=== PATIENT | male | born 1950 | race Caucasian/White ===

== ENCOUNTER 2018-08-26 08:12 | Emergency (ER) | payer MEDICAID ==
[2018-08-26] MEDS ORDERED: Sodium Chloride 0.9% 1,000 ML IV ONE (08:39)
[2018-08-26] MEDS ORDERED: MVI, Adult with Vitamin K 10 ML, Thiamine 100 MG, Folic Acid 1 MG in Sodium Chloride 0.... IV ONE ×4 (08:43)
[2018-08-26] MEDS ORDERED: LORazepam 2 MG/ML SDV IVPUSH ONE ×2 (08:44→10:10)
[2018-08-26] MEDS ORDERED: Ondansetron 4 MG/2 ML SDV IVPUSH ONE (08:45)
[2018-08-26] MEDS ORDERED: Albuterol/Ipratropium 3.0-0.5 MG/3 ML Neb Soln NEB ONE (08:46)
--- NOTE | 2018-08-26 08:53 | EDM.PDOC ---
<Daveywendy Kirk Louise - Last Filed: 08/26/18 12:02> ED HPI GENERAL MEDICAL PROBLEM - General Chief Complaint: Gastrointestinal Problem Stated Complaint: SOB Time Seen by Provider: 08/26/18 12:04 - History of Present Illness INITIAL COMMENTS - FREE TEXT/NARRATIVE: 68 y/o male with history of alcohol abuse who states he has been having nausea and vomiting past 2-3 days. States he drinks 2-3 beers per day. Has not been drink in the past few days due to nausea, vomiting. No hemoptysis, no fevers. No abdominal pain,dysuria. Does endorse some diarrhea in past few days. No sick contacts. Lives alone. Denies history of alcohol withdrawal seizures. - Related Data Allergies Allergy/AdvReac Type Severity Reaction Status Date / Time No Known Allergies Allergy Verified 08/26/18 08:20 Home Meds: Home Meds . [No Known Home Meds] 08/26/18 [History] Past Medical History HEENT History: Reports: None Cardiovascular History: Reports: Hypertension Respiratory History: Reports: None Gastrointestinal History: Reports: None Genitourinary History: Reports: None Musculoskeletal History: Reports: None Neurological History: Reports: None Psychiatric History: Reports: None Endocrine/Metabolic History: Reports: None Hematologic History: Reports: None Immunologic History: Reports: None Oncologic (Cancer) History: Reports: None Dermatologic History: Reports: None - Infectious Disease History Infectious Disease History: Reports: Chicken Pox - Past Surgical History Head Surgeries/Procedures: Reports: None HEENT Surgical History: Reports: None Cardiovascular Surgical History: Reports: None Respiratory Surgical History: Reports: None GI Surgical History: Reports: None Male Surgical History: Reports: None Endocrine Surgical History: Reports: None Neurological Surgical History: Reports: None Musculoskeletal Surgical History: Reports: None Oncologic Surgical History: Reports: None Dermatological Surgical History: Reports: None Social & Family History - Family History Family Medical History: Noncontributory - Tobacco Use Smoking Status *Q: Current Every Day Smoker Years of Tobacco use: 30 Packs/Tins Daily: 0.5 - Caffeine Use Caffeine Use: Reports: Coffee - Alcohol Use Days Per Week of Alcohol Use: 7 Number of Drinks Per Day: 4 Total Drinks Per Week: 28 - Recreational Drug Use Recreational Drug Use: No ED ROS GENERAL - Review of Systems Review Of Systems: ROS reveals no pertinent complaints other than HPI. ED EXAM, GI/ABD - Physical Exam Exam: See Below General Appearance: Alert, Anxious Throat/Mouth: Other (dry mucous membranes) Respiratory/Chest: Other (mild expiratory wheezing in upper lobes bilaterally) Cardiovascular: Normal Peripheral Pulses, No Edema, Tachycardia GI/Abdominal Exam: Other (distended, tympanic. non tender all through out.) Extremities: Normal Inspection, No Pedal Edema Neurological: Alert, Oriented Skin Exam: Warm, Dry Course - Vital Signs Text/Narrative:: Patient received IV fluids and Ativan 1mg IV x2. CT abdomen/pelvis did not show any acute findings. Showed some calcifications in the pancreas thought to be sequale of previous pancreatitis. Patient was offered admission for alcohol detox, however, he refused since he stated he was not ready to quit drinking alcohol. Last Recorded V/S: Last Vital Signs Temp 35.7 C 08/26/18 08:20 Pulse 113 H 08/26/18 08:20 Resp 18 08/26/18 08:20 BP 213/128 H 08/26/18 08:20 Pulse Ox 95 08/26/18 08:20 - Orders/Labs/Meds Orders: Active Orders 24 hr Category Date Time Status EKG 12 Lead [EKG Documentation Completion] [RC] STAT Care 08/26/18 08:56 Active RT Aerosol Therapy [RC] ASDIRECTED Care 08/26/18 08:46 Active MVI, Adult with Vitamin K [Infuvite Adult] 10 ml Med 08/26/18 08:43 Active Thiamine [Vitamin B-1] 100 mg Folic Acid 1 mg Sodium Chloride 0.9% [Normal Saline] 1,000 ml IV ONETIME Medication Orders Multivitamins/Minerals 10 ml/Thiamine HCl 100 mg/ Folic Acid 1 mg/ Sodium Chloride 1,011.2 mls @ 150 mls/hr IV ONETIME ONE Stop: 08/26/18 15:27 Last Admin: 08/26/18 10:09 Dose: 150 mls/hr Labs: Laboratory Tests 08/26/18 08/26/18 Range/Units 08:25 08:25 WBC 10.31 (4.0-11.0) K/uL RBC 5.65 (4.50-5.90) M/uL Hgb 18.1 H (13.0-17.0) g/dL Hct 50.1 H (38.0-50.0) % MCV 88.7 (80.0-98.0) fL MCH 32.0 (27.0-32.0) pg MCHC 36.1 (31.0-37.0) g/dL RDW Std Deviation 43.5 (28.0-62.0) fl RDW Coeff of Bria 13 (11.0-15.0) % Plt Count 255 (150-400) K/uL MPV 9.00 (7.40-12.00) fL Neut % (Auto) 81.8 H (48.0-80.0) % Lymph % (Auto) 14.1 L (16.0-40.0) % Butts % (Auto) 3.9 (0.0-15.0) % Eos % (Auto) 0.1 (0.0-7.0) % Baso % (Auto) 0.1 (0.0-1.5) % Neut # (Auto) 8.4 H (1.4-5.7) K/uL Lymph # (Auto) 1.5 (0.6-2.4) K/uL Butts # (Auto) 0.4 (0.0-0.8) K/uL Eos # (Auto) 0.0 (0.0-0.7) K/uL Baso # (Auto) 0.0 (0.0-0.1) K/uL Nucleated RBC % 0.0 /100WBC Nucleated RBCs # 0 K/uL Sodium 130 L (136-148) mmol/L Potassium 3.7 (3.5-5.1) mmol/L Chloride 94 L (98-107) mmol/L Carbon Dioxide 21.5 (21.0-32.0) mmol/L BUN 5 L (7.0-18.0) mg/dL Creatinine 0.8 (0.8-1.3) mg/dL Est Cr Clr Drug Dosing 92.52 mL/min Estimated GFR (MDRD) > 60.0 ml/min Glucose 141 H (74-106) mg/dL Calcium 9.5 (8.5-10.1) mg/dL Magnesium 1.9 (1.8-2.4) mg/dL Total Bilirubin 0.7 (0.2-1.0) mg/dL AST 55 H (15-37) IU/L ALT 60 (14-63) IU/L Alkaline Phosphatase 88 (46-116) U/L Total Protein 8.4 H (6.4-8.2) g/dL Albumin 4.3 (3.4-5.0) g/dL Globulin 4.1 H (2.6-4.0) g/dL Albumin/Globulin Ratio 1.1 (0.9-1.6) Lipase 256 (73-393) U/L Ethyl Alcohol < 3.0 mg/dL Meds: Medications Generic Name Dose Route Start Last Admin Trade Name Freq PRN Reason Stop Dose Admin Multivitamins/Minerals 10 ml/ 1,011.2 mls @ 150 mls/hr 08/26/18 08:43 10:09 Thiamine HCl 100 mg/ Folic IV 08/26/18 15:27 150 mls/hr Acid 1 mg/ Sodium Chloride ONETIME ONE Administration Discontinued Medications Generic Name Dose Route Start Last Admin Trade Name Freq PRN Reason Stop Dose Admin Albuterol/Ipratropium 3 ml 08/26/18 08:46 08/26/18 08:53 Duoneb 3.0-0.5 Mg/3 Ml NEB 08/26/18 08:47 3 ml ONETIME ONE Administration Sodium Chloride 1,000 mls @ 999 mls/hr 08/26/18 08:39 08/26/18 08:47 Normal Saline IV 08/26/18 09:39 999 mls/hr STAT ONE Administration Sodium Chloride Confirm 08/26/18 09:05 Normal Saline Administered 08/26/18 09:06 Dose 20 mls @ as directed .ROUTE .STK-MED ONE Iopamidol 100 ml 08/26/18 09:49 08/26/18 10:00 Isovue Multipack-370 (76%) IVPUSH 08/26/18 09:50 100 ml ONETIME STA Administration Lorazepam 1 mg 08/26/18 08:44 08/26/18 08:51 Ativan IVPUSH 08/26/18 08:45 1 mg ONETIME ONE Administration Lorazepam 1 mg 08/26/18 10:10 08/26/18 10:54 Ativan IVPUSH 08/26/18 10:11 1 mg ONETIME ONE Administration Ondansetron HCl 4 mg 08/26/18 08:45 08/26/18 08:51 Zofran IVPUSH 08/26/18 08:46 4 mg ONETIME ONE Administration Pantoprazole Sodium 80 mg 08/26/18 08:57 08/26/18 10:09 Protonix Iv IVPUSH 08/26/18 08:58 80 mg .BOLUS ONE Administration Departure - Departure Time of Disposition: 12:02 Disposition: Home, Self-Care 01 Condition: Fair Clinical Impression: Dehydration, Alcohol withdrawal - Discharge Information *PRESCRIPTION DRUG MONITORING PROGRAM REVIEWED*: No *COPY OF PRESCRIPTION DRUG MONITORING REPORT IN PATIENT DOMINGO: No Instructions: Alcohol Use Disorder, Dehydration, Adult, [id number] Referrals: PCP,None [Primary Care Provider] - Forms: ED Department Discharge Additional Instructions: Please abstain from alcohol and any mind altering substances. Follow-up with your PCP. <Ce Martinez - Last Filed: 08/26/18 12:10> ED HPI GENERAL MEDICAL PROBLEM - History of Present Illness INITIAL COMMENTS - FREE TEXT/NARRATIVE: Dr. Martinez dictating an addendum note as in the supervising physician on this case. The patient tells me that he did not have any abdominal pain just the nausea and vomiting and as a result of that he was unable to drink his daily beer and this is why he is feeling shaky. When I directly ask him if he had planned on stopping drinking alcohol he denies this. He says he currently does not have any abdominal pain and has no fevers chills chest pain or shortness of breath. The patient has no history of liver or gallbladder or pancreas problems and no history of peptic ulcer disease. He currently is tachycardic on arrival and looks somewhat tremulous but is awake alert and oriented and cooperative. He has no specific abdominal tenderness but does have some tympany on percussion and bowel sounds are slightly hypoactive. We will continue with workup as above and disposition pending those test results The patient's tachycardia has significantly improved to 100 and he has much less tremulous. Please see the resident note for conversations with this patient. When queried if the patient would like to do detox here and then subsequent rehabilitation he says that he has no intention of not drinking alcohol. He says that as long as his nausea and vomiting are controlled he would like to be discharged home as he plans on continuing his alcohol consumption. He was cautioned about the sequela of alcohol use and abuse and he states understanding. He has not had any nausea or vomiting here in the ED. Course - Orders/Labs/Meds Labs: Laboratory Tests 08/26/18 08/26/18 Range/Units 08:25 08:25 WBC 10.31 (4.0-11.0) K/uL RBC 5.65 (4.50-5.90) M/uL Hgb 18.1 H (13.0-17.0) g/dL Hct 50.1 H (38.0-50.0) % MCV 88.7 (80.0-98.0) fL MCH 32.0 (27.0-32.0) pg MCHC 36.1 (31.0-37.0) g/dL RDW Std Deviation 43.5 (28.0-62.0) fl RDW Coeff of Bria 13 (11.0-15.0) % Plt Count 255 (150-400) K/uL MPV 9.00 (7.40-12.00) fL Neut % (Auto) 81.8 H (48.0-80.0) % Lymph % (Auto) 14.1 L (16.0-40.0) % Butts % (Auto) 3.9 (0.0-15.0) % Eos % (Auto) 0.1 (0.0-7.0) % Baso % (Auto) 0.1 (0.0-1.5) % Neut # (Auto) 8.4 H (1.4-5.7) K/uL Lymph # (Auto) 1.5 (0.6-2.4) K/uL Butts # (Auto) 0.4 (0.0-0.8) K/uL Eos # (Auto) 0.0 (0.0-0.7) K/uL Baso # (Auto) 0.0 (0.0-0.1) K/uL Nucleated RBC % 0.0 /100WBC Nucleated RBCs # 0 K/uL Sodium 130 L (136-148) mmol/L Potassium 3.7 (3.5-5.1) mmol/L Chloride 94 L (98-107) mmol/L Carbon Dioxide 21.5 (21.0-32.0) mmol/L BUN 5 L (7.0-18.0) mg/dL Creatinine 0.8 (0.8-1.3) mg/dL Est Cr Clr Drug Dosing 92.52 mL/min Estimated GFR (MDRD) > 60.0 ml/min Glucose 141 H (74-106) mg/dL Calcium 9.5 (8.5-10.1) mg/dL Magnesium 1.9 (1.8-2.4) mg/dL Total Bilirubin 0.7 (0.2-1.0) mg/dL AST 55 H (15-37) IU/L ALT 60 (14-63) IU/L Alkaline Phosphatase 88 (46-116) U/L Total Protein 8.4 H (6.4-8.2) g/dL Albumin 4.3 (3.4-5.0) g/dL Globulin 4.1 H (2.6-4.0) g/dL Albumin/Globulin Ratio 1.1 (0.9-1.6) Lipase 256 (73-393) U/L Ethyl Alcohol < 3.0 mg/dL
[2018-08-26] MEDS ORDERED: Pantoprazole 40 MG Vial IVPUSH ONE (08:57)
[2018-08-26 09:04] LABS: CHLORIDE,CL 94 mmol/L (98-107); SODIUM,NA 130 mmol/L (136-148)
[2018-08-26] MEDS ORDERED: Sodium Chloride 0.9% 20 ML ONE (09:05)
[2018-08-26] MEDS ORDERED: Iopamidol 755 MG/ML 500 ML Multipack Bottle IVPUSH STA (09:49)
--- NOTE | 2018-08-26 10:29 | CT ---
CT of the abdomen and pelvis with contrast. HISTORY: Nausea and vomiting TECHNIQUE: Axial CT images were obtained of the abdomen and pelvis following administration of 100 mL of Isovue-370 in the left antecubital fossa without complication. Coronal and sagittal reconstructions obtained. FINDINGS: Motion is noted within the lung bases which otherwise appear grossly unremarkable. Severe fatty infiltration of the liver. The gallbladder is normal. The adrenal glands are unremarkable. Spleen is diminutive in size. A few Pancreatic calcifications are noted. The kidneys enhance and function symmetrically without evidence of obstructive uropathy. The large and small bowel are normal in caliber. Moderate colonic diverticulosis without evidence of diverticulitis. The appendix is normal. No pelvic lymphadenopathy or free pelvic fluid. Urinary bladder dong appear mildly thickened. No suspicious osseous abnormalities identified. IMPRESSION: 1. No evidence of a small bowel obstruction. 2. An infiltration of the liver. 3. A few pancreatic calcifications noted, likely the sequela of previous pancreatitis. 4. Moderate diverticulosis. 5. Bladder dong appear mildly thickened however the bladder is not overly distended.
== END 2018-08-26 12:20 | disposition home or self-care (01) ==
LOC: MW.ED 08:12
DX: F10.239 Alcohol dependence with withdrawal, unspecified (principal); Y90.0 Blood alcohol level of less than 20 mg/100 ml; E86.0 Dehydration; I10 Essential (primary) hypertension; F17.210 Nicotine dependence, cigarettes, uncomplicated
CPT/HCPCS: 36415; 74177; 80053; 83690; 83735; 85025; 93005; 94640; 96361; 96365; 96366; 96375; 96376; 99284; C9113; G0480; J2060; J2405; J3411; J7040; Q9967; J7620-GY

== ENCOUNTER 2018-09-11 07:03 | Emergency (ER) | payer MEDICAID ==
[2018-09-11] MEDS ORDERED: Ondansetron 4 MG/2 ML SDV IVPUSH ONE (07:08)
[2018-09-11] MEDS ORDERED: Sodium Chloride 0.9% 1,000 ML IV ONE (07:08)
[2018-09-11] MEDS ORDERED: LORazepam 2 MG/ML SDV IVPUSH ONE (07:09)
[2018-09-11] MEDS ORDERED: Pantoprazole 40 MG Vial IVPUSH ONE (07:24)
[2018-09-11] MEDS ORDERED: Sodium Chloride 0.9% 10 ML SDV IV STA (07:29)
[2018-09-11] MEDS ORDERED: Water For Injection, Sterile 20 ML SDV INJECT STA (07:30)
[2018-09-11 07:48] LABS: CHLORIDE,CL 93 mmol/L (98-107); SODIUM,NA 131 mmol/L (136-148)
--- NOTE | 2018-09-11 08:17 | EDM.PDOC ---
ED HPI GENERAL MEDICAL PROBLEM - General Chief Complaint: General Stated Complaint: VOMITING, DIARRHEA, WEAK, SHAKING, ANXIETY Time Seen by Provider: 09/11/18 08:17 Source of Information: Reports: Patient - History of Present Illness INITIAL COMMENTS - FREE TEXT/NARRATIVE: HISTORY AND PHYSICAL: History of present illness: [Patient presents with nausea vomiting and anxiety, states that he has been drinking 2-4 beers daily but began vomiting last night, stating that he gets quite anxious and then vomits he has had 2-3 episodes of vomiting twice last night and again this morning and presents as such is in no distress alert interactive easily examined No fever chills sweats no chest pain shortness breath headache dizziness palpitation no bowel or urine symptoms ] Review of systems: As per history of present illness and below otherwise all systems reviewed and negative. Past medical history: As per history of present illness and as reviewed below otherwise noncontributory. Surgical history: As per history of present illness and as reviewed below otherwise noncontributory. Social history: No reported history of drug or alcohol abuse. Family history: As per history of present illness and as reviewed below otherwise noncontributory. Physical exam: HEENT: Atraumatic, normocephalic, pupils reactive, negative for conjunctival pallor or scleral icterus, mucous membranes moist, throat clear, neck supple, nontender, trachea midline. Lungs: Clear to auscultation, breath sounds equal bilaterally, chest nontender. Heart: S1S2, regular, negative for clicks, rubs, or JVD. Abdomen: Soft, nondistended, nontender. Negative for masses or hepatosplenomegaly. Negative for costovertebral tenderness. Pelvis: Stable nontender. Genitourinary: Deferred. Rectal: Deferred. Extremities: Atraumatic, negative for cords or calf pain. Neurovascular unremarkable. Neuro: Awake, alert, oriented. Cranial nerves II through XII unremarkable. Cerebellum unremarkable. Motor and sensory unremarkable throughout. Exam nonfocal. Diagnostics: [CBC CMP UA troponin EKG Chest 1 view Abdomen series] Therapeutics: [ bolus Zofran Ativan Zofran No. 30 Ativan 0.5 twice a day #10 no refill ] Impression: [ vomiting Anxiety Alcohol use abuse ] Chronic history of baseline Definitive disposition and diagnosis as appropriate pending reevaluation and review of above. - Related Data Allergies Allergy/AdvReac Type Severity Reaction Status Date / Time No Known Allergies Allergy Verified 09/11/18 07:13 Home Meds: Home Meds . [No Known Home Meds] 08/26/18 [History] Past Medical History HEENT History: Reports: None Cardiovascular History: Reports: Hypertension Respiratory History: Reports: None Gastrointestinal History: Reports: None Genitourinary History: Reports: None Musculoskeletal History: Reports: None Neurological History: Reports: None Psychiatric History: Reports: None Endocrine/Metabolic History: Reports: None Hematologic History: Reports: None Immunologic History: Reports: None Oncologic (Cancer) History: Reports: None Dermatologic History: Reports: None - Infectious Disease History Infectious Disease History: Reports: Chicken Pox - Past Surgical History Head Surgeries/Procedures: Reports: None HEENT Surgical History: Reports: None Cardiovascular Surgical History: Reports: None Respiratory Surgical History: Reports: None GI Surgical History: Reports: None Male Surgical History: Reports: None Endocrine Surgical History: Reports: None Neurological Surgical History: Reports: None Musculoskeletal Surgical History: Reports: None Oncologic Surgical History: Reports: None Dermatological Surgical History: Reports: None Social & Family History - Family History Family Medical History: Noncontributory - Tobacco Use Smoking Status *Q: Current Every Day Smoker Years of Tobacco use: 25 Packs/Tins Daily: 0.5 - Caffeine Use Caffeine Use: Reports: None - Recreational Drug Use Recreational Drug Use: No ED ROS GENERAL - Review of Systems Review Of Systems: See Below ED EXAM, GENERAL - Physical Exam Exam: See Below Course - Vital Signs Last Recorded V/S: Last Vital Signs Temp 98.0 F 09/11/18 07:15 Pulse 78 09/11/18 08:10 Resp 14 09/11/18 08:10 BP 186/102 H 09/11/18 08:10 Pulse Ox 93 L 09/11/18 08:10 - Orders/Labs/Meds Orders: Active Orders 24 hr Category Date Time Status EKG Documentation Completion [RC] AM Care 09/11/18 07:08 Active CULTURE URINE [RM] Stat Lab 09/11/18 08:14 Received Labs: Laboratory Tests 09/11/18 09/11/18 09/11/18 Range/Units 07:09 07:09 07:09 WBC 7.89 (4.0-11.0) K/uL RBC 5.54 (4.50-5.90) M/uL Hgb 18.2 H (13.0-17.0) g/dL Hct 49.3 (38.0-50.0) % MCV 89.0 (80.0-98.0) fL MCH 32.9 H (27.0-32.0) pg MCHC 36.9 (31.0-37.0) g/dL RDW Std Deviation 43.8 (28.0-62.0) fl RDW Coeff of Bria 13 (11.0-15.0) % Plt Count 276 (150-400) K/uL MPV 8.90 (7.40-12.00) fL Neut % (Auto) 70.7 (48.0-80.0) % Lymph % (Auto) 22.1 (16.0-40.0) % [place] % (Auto) 6.8 (0.0-15.0) % Eos % (Auto) 0.1 (0.0-7.0) % Baso % (Auto) 0.3 (0.0-1.5) % Neut # (Auto) 5.6 (1.4-5.7) K/uL Lymph # (Auto) 1.7 (0.6-2.4) K/uL [place] # (Auto) 0.5 (0.0-0.8) K/uL Eos # (Auto) 0.0 (0.0-0.7) K/uL Baso # (Auto) 0.0 (0.0-0.1) K/uL Nucleated RBC % 0.0 /100WBC Nucleated RBCs # 0 K/uL INR 1.04 Sodium 131 L (136-148) mmol/L Potassium 4.0 (3.5-5.1) mmol/L Chloride 93 L (98-107) mmol/L Carbon Dioxide 21.5 (21.0-32.0) mmol/L BUN 4 L (7.0-18.0) mg/dL Creatinine 0.8 (0.8-1.3) mg/dL Est Cr Clr Drug Dosing 90.83 mL/min Estimated GFR (MDRD) > 60.0 ml/min Glucose 132 H (74-106) mg/dL Calcium 9.5 (8.5-10.1) mg/dL Total Bilirubin 0.9 (0.2-1.0) mg/dL AST 50 H (15-37) IU/L ALT 58 (14-63) IU/L Alkaline Phosphatase 91 (46-116) U/L Troponin I < 0.050 (0.000-0.056) ng/mL Total Protein 8.8 H (6.4-8.2) g/dL Albumin 4.5 (3.4-5.0) g/dL Globulin 4.3 H (2.6-4.0) g/dL Albumin/Globulin Ratio 1.1 (0.9-1.6) Urine Color Urine Appearance Urine pH (5.0-8.0) Ur Specific [place] (1.001-1.035) Urine Protein (NEGATIVE) mg/dL Urine Glucose (UA) (NEGATIVE) mg/dL Urine Ketones (NEGATIVE) mg/dL Urine Occult Blood (NEGATIVE) Urine Nitrite (NEGATIVE) Urine Bilirubin (NEGATIVE) Urine Urobilinogen (<2.0) EU/dL Ur Leukocyte Esterase (NEGATIVE) Urine RBC (0-2/HPF) Urine WBC (0-5/HPF) Ur Epithelial Cells (NONE-FEW) Urine Bacteria (NEGATIVE) 09/11/18 Range/Units 08:14 WBC (4.0-11.0) K/uL RBC (4.50-5.90) M/uL Hgb (13.0-17.0) g/dL Hct (38.0-50.0) % MCV (80.0-98.0) fL MCH (27.0-32.0) pg MCHC (31.0-37.0) g/dL RDW Std Deviation (28.0-62.0) fl RDW Coeff of Bria (11.0-15.0) % Plt Count (150-400) K/uL MPV (7.40-12.00) fL Neut % (Auto) (48.0-80.0) % Lymph % (Auto) (16.0-40.0) % [place] % (Auto) (0.0-15.0) % Eos % (Auto) (0.0-7.0) % Baso % (Auto) (0.0-1.5) % Neut # (Auto) (1.4-5.7) K/uL Lymph # (Auto) (0.6-2.4) K/uL [place] # (Auto) (0.0-0.8) K/uL Eos # (Auto) (0.0-0.7) K/uL Baso # (Auto) (0.0-0.1) K/uL Nucleated RBC % /100WBC Nucleated RBCs # K/uL INR Sodium (136-148) mmol/L Potassium (3.5-5.1) mmol/L Chloride (98-107) mmol/L Carbon Dioxide (21.0-32.0) mmol/L BUN (7.0-18.0) mg/dL Creatinine (0.8-1.3) mg/dL Est Cr Clr Drug Dosing mL/min Estimated GFR (MDRD) ml/min Glucose (74-106) mg/dL Calcium (8.5-10.1) mg/dL Total Bilirubin (0.2-1.0) mg/dL AST (15-37) IU/L ALT (14-63) IU/L Alkaline Phosphatase (46-116) U/L Troponin I (0.000-0.056) ng/mL Total Protein (6.4-8.2) g/dL Albumin (3.4-5.0) g/dL Globulin (2.6-4.0) g/dL Albumin/Globulin Ratio (0.9-1.6) Urine Color YELLOW Urine Appearance CLEAR Urine pH 7.0 (5.0-8.0) Ur Specific [place] <= 1.005 (1.001-1.035) Urine Protein NEGATIVE (NEGATIVE) mg/dL Urine Glucose (UA) 100 H (NEGATIVE) mg/dL Urine Ketones NEGATIVE (NEGATIVE) mg/dL Urine Occult Blood TRACE-LYSED H (NEGATIVE) Urine Nitrite NEGATIVE (NEGATIVE) Urine Bilirubin NEGATIVE (NEGATIVE) Urine Urobilinogen 0.2 (<2.0) EU/dL Ur Leukocyte Esterase TRACE H (NEGATIVE) Urine RBC 0-1 (0-2/HPF) Urine WBC 0-1 (0-5/HPF) Ur Epithelial Cells FEW (NONE-FEW) Urine Bacteria FEW (NEGATIVE) Meds: Medications Discontinued Medications Generic Name Dose Route Start Last Admin Trade Name Freq PRN Reason Stop Dose Admin Enalaprilat 1.25 mg 09/11/18 09:08 Vasotec Iv IVPUSH 09/11/18 09:09 ONETIME ONE Sodium Chloride 1,000 mls @ 999 mls/hr 09/11/18 07:08 09/11/18 07:17 Normal Saline IV 09/11/18 08:08 999 mls/hr STAT ONE Administration Lorazepam 1 mg 09/11/18 07:09 09/11/18 07:18 Ativan IVPUSH 09/11/18 07:10 1 mg ONETIME ONE Administration Ondansetron HCl 8 mg 09/11/18 07:08 09/11/18 07:18 Zofran IVPUSH 09/11/18 07:09 8 mg ONETIME ONE Administration Pantoprazole Sodium 80 mg 09/11/18 07:24 09/11/18 07:36 Protonix Iv IVPUSH 09/11/18 07:25 80 mg .BOLUS ONE Administration Sodium Chloride 20 ml 09/11/18 07:29 09/11/18 07:37 Normal Saline IV 09/11/18 07:30 Not Given NOW STA Sterile Water 20 ml 09/11/18 07:30 09/11/18 07:36 Sterile Water For Injection INJECT 09/11/18 07:31 20 ml NOW STA Administration Departure - Departure Time of Disposition: 09:13 Disposition: Home, Self-Care 01 Condition: Good Clinical Impression: Vomiting, Anxiety - Discharge Information Referrals: PCP,None [Primary Care Provider] - Forms: ED Department Discharge Additional Instructions: Medication as prescribed Return if symptoms persist or worsen Alcohol cessation recommended Follow-up with primary care 2 weeks sooner as needed [facility] - Primary [facility] [address] [place] [address] The following information is given to patients seen in the emergency department who are being discharged to home. This information is to outline your options for follow-up care. We provide all patients seen in our emergency department with a follow-up referral. The need for follow-up, as well as the timing and circumstances, are variable depending upon the specifics of your emergency department visit. If you don't have a primary care physician on staff, we will provide you with a referral. We always advise you to contact your personal physician following an emergency department visit to inform them of the circumstance of the visit and for follow-up with them and/or the need for any referrals to a consulting specialist. The emergency department will also refer you to a specialist when appropriate. This referral assures that you have the opportunity for follow-up care with a specialist. All of these measure are taken in an effort to provide you with optimal care, which includes your follow-up. Under all circumstances we always encourage you to contact your private physician who remains a resource for coordinating your care. When calling for follow-up care, please make the office aware that this follow-up is from your recent emergency room visit. If for any reason you are refused follow-up, please contact the [facility] emergency department at and asked to speak to the emergency department charge nurse. - My Orders Last 24 Hours: My Active Orders 09/11/18 07:08 EKG Documentation Completion [RC] AM 09/11/18 08:14 CULTURE URINE [RM] Stat - Assessment/Plan Last 24 Hours: My Active Orders 09/11/18 07:08 EKG Documentation Completion [RC] AM 09/11/18 08:14 CULTURE URINE [RM] Stat
--- NOTE | 2018-09-11 08:55 | CR ---
EXAMINATION: Abdominal series HISTORY: Pain COMPARISON: CT dated 08/26/2018 TECHNIQUE: PA chest and AP views of the abdomen FINDINGS: The lungs are clear without focal consolidation. No pleural effusion or pneumothorax. The cardiomediastinal silhouette is normal. No free air under the diaphragm. There is a nonobstructive bowel gas pattern. No abnormal calcifications project over the kidneys. No organomegaly. Visualized osseous structures appear intact. IMPRESSION: No acute cardiopulmonary or abdominal findings noted.
[2018-09-11] MEDS ORDERED: Enalaprilat 1.25 MG/ML SDV IVPUSH ONE (09:08)
== END 2018-09-11 09:24 | disposition home or self-care (01) ==
LOC: MW.ED 07:03
DX: F41.9 Anxiety disorder, unspecified (principal); F10.10 Alcohol abuse, uncomplicated; R11.2 Nausea with vomiting, unspecified; I10 Essential (primary) hypertension; F17.210 Nicotine dependence, cigarettes, uncomplicated
CPT/HCPCS: 36415; 74022; 80053; 81001; 84484; 85025; 85610; 87086; 87088; 87186; 93005; 96361; 96374; 96375; 99284; C9113; J2060; J2405; J7040

== ENCOUNTER 2019-07-01 09:59 | Inpatient (IN) | payer MEDICARE, OTHER ==
[2019-07-01] MEDS ORDERED: Diphtheria,Pertussis(Acell),Tetanus Vaccine 0.5 ML Syringe IM ONE (10:24)
--- NOTE | 2019-07-01 10:38 | CR ---
Chest: Frontal view of the chest was obtained utilizing portable technique. Comparison: No prior chest imaging. Heart size is normal. Tortuous thoracic aorta is seen. Lungs are clear with no acute parenchymal change. No gross bony abnormality is appreciated. Impression: 1. Nothing acute is appreciated on portable chest x-ray. Diagnostic code #1 This report was dictated in MDT
--- NOTE | 2019-07-01 10:45 | CT ---
Head CT Technique: Multiple axial sections through the brain were obtained. Intravenous contrast was not utilized. Comparison: No prior intracranial imaging is available. Findings: Ventricles along with basal cisterns and sulci over the convexities are mildly prominent. No abnormal parenchymal densities are seen. No evidence of intracranial hemorrhage. No midline shift or mass-effect is seen. Bone window settings were reviewed. No acute calvarial finding is appreciated. Visualized mastoid sinus shows minimal mucosal thickening or fluid inferiorly on the left side. Other mastoid sinuses are clear. Mucosal thickening and questionable fluid is noted within the maxillary sinuses and difficult to exclude sinusitis. No acute calvarial abnormality is appreciated. Impression: 1. Sinus findings within both maxillary sinuses. Difficult to exclude pre-existing sinusitis. 2. Minimal mucosal thickening or fluid within the inferior left mastoid sinus. 3. No acute intracranial abnormality is appreciated. Diagnostic code #2 This report was dictated in MDT
--- NOTE | 2019-07-01 10:45 | CT ---
CT cervical spine Technique: Multiple axial sections through the cervical spine were obtained from above C1 inferiorly to the bottom of T2. Reconstructed coronal and sagittal images were obtained. Comparison: No prior cervical spine imaging is available. Findings: Moderate disc space narrowing noted at C5-6. Mild disc space narrowing noted at C6-7. Mild disc space narrowing is noted at C4-5. Vertebral body heights are maintained. Posterior osteophytes are seen most prominent C5-6. Vertebral bodies and posterior arches are intact. No fracture is appreciated. Moderate to severe left-sided neural foraminal stenosis is noted at C5-6 with mild right-sided neural foraminal stenosis noted at C5-6. Other neural foramina are patent. No bony central canal stenosis is seen. Impression: 1. Degenerative change as noted above. 2. Nothing acute is appreciated on CT study of the cervical spine. Diagnostic code #2 This report was dictated in MDT
[2019-07-01 10:47] LABS: BLOOD UREA NITROGEN,BUN 8 mg/dL (7.0-18.0); CARBON DIOXIDE,CO2 24.1 mmol/L (21.0-32.0); CHLORIDE,CL 65 mmol/L (98-107); GLUCOSE RANDOM 139 mg/dL (74-106); POTASSIUM,K 3.7 mmol/L (3.5-5.1)
[2019-07-01 10:53] LABS: SODIUM,NA 99 mmol/L (136-148)
--- NOTE | 2019-07-01 10:54 | CR ---
Right knee: AP, lateral and sunrise patellar views of the right knee were obtained. Comparison: No prior knee exam. Moderate to severe medial joint space narrowing within the right knee. Lateral joint space is preserved. Minimal fluid within the joint is seen. Mild vascular calcification is noted. No acute fracture or dislocation is seen. Impression: 1. Degenerative change. 2. Nothing acute is appreciated on 3 view right knee exam. Diagnostic code #2 This report was dictated in MDT
[2019-07-01 11:40] LABS: BLOOD UREA NITROGEN,BUN 9 mg/dL (7.0-18.0); CARBON DIOXIDE,CO2 23.5 mmol/L (21.0-32.0); CHLORIDE,CL 65 mmol/L (98-107); GLUCOSE RANDOM 132 mg/dL (74-106); POTASSIUM,K 3.3 mmol/L (3.5-5.1)
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
[2019-07-01 11:43] LABS: SODIUM,NA 100 mmol/L (136-148)
[2019-07-01] MEDS ORDERED: Sodium Chloride 3% 500 ML IV SCH (11:45)
[2019-07-01] MEDS ORDERED: cefTRIAXone 1 GM in Sodium Chloride 0.9% 50 ML IV ONE (12:16)
[2019-07-01] MEDS ORDERED: LORazepam 2 MG/ML SDV IV PRN (13:26)
[2019-07-01] MEDS ORDERED: Sodium Chloride 0.9% 2.5 ML Syringe FLUSH PRN (13:26)
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
--- NOTE | 2019-07-01 15:07 | CT ---
CT chest Technique: Multiple axial sections were obtained from above the lung apices inferiorly through the lung bases. Reconstructed coronal and sagittal images were obtained. Intravenous contrast was not utilized. Findings: Thoracic aorta shows atherosclerotic calcification. No aneurysm is seen. Mild coronary artery calcification is noted. No pericardial thickening is noted. Mediastinum and hilar region show no adenopathy or mass. Lungs show emphysematous change with small subpleural blebs. No acute parenchymal change is seen. No pleural effusions are noted. No pneumothorax is appreciated. No acute osseous finding is appreciated. Reconstructed images of the sternum appear within normal limits. Impression: 1. Diffuse emphysematous change with small subpleural blebs. 2. Other findings as noted above which are nonacute. 3. No acute finding is seen on CT study of the chest. Diagnostic code #2 This report was dictated in MDT
--- NOTE | 2019-07-01 15:07 | CT ---
CT thoracic spine Technique: Multiple axial images through the thoracic spine were obtained. Reconstructed coronal and sagittal images were obtained. Findings: Vertebral body heights and disc spaces are fairly well preserved. No fracture is seen. No abnormal subluxation is noted. No central canal stenosis is seen. Parasagittal images show no bony neural foraminal stenosis. Impression: 1. Nothing acute is appreciated on CT study of the thoracic spine. Diagnostic code #1 This report was dictated in MDT
--- NOTE | 2019-07-01 15:07 | CT ---
CT abdomen and pelvis Technique: Multiple axial sections were obtained from above the dome of the diaphragm inferiorly through the pubic symphysis. Intravenous contrast and oral contrast was not given. Comparison: Prior CT abdomen and pelvis exam of 08/26/18. Findings: Visualized lung bases show nothing acute. Fatty infiltration is seen throughout the liver. No focal abnormality is appreciated within the liver. Spleen size is normal. Adrenal glands show no nodule. Kidneys show no abnormal calcifications or hydronephrosis. Pancreas shows several calcifications which are felt to be stable and therefore benign. Aorta shows atherosclerotic calcification. No aneurysm is seen. Atherosclerotic calcification continues into the iliac vessels. Appendix is seen which is normal. Diverticuli are seen within the descending and sigmoid regions. No inflammatory change of diverticulitis is seen. Bladder shows slight wall thickening which is stable. Calcifications are seen within the prostate gland. Bone window settings were reviewed. Mild scattered degenerative change is noted. No acute osseous finding is appreciated. Impression: 1. Sigmoid diverticuli. 2. Fatty infiltration within the liver and other findings as noted above which are stable. 3. Nothing acute is appreciated on noncontrast CT study of the abdomen and pelvis. Diagnostic code #2 This report was dictated in MDT
--- NOTE | 2019-07-01 15:07 | CT ---
CT lumbar spine Technique: Multiple axial sections through the lumbar spine were obtained from the top T11 inferiorly through the L5-S1 disc. Reconstructed sagittal and coronal images were reviewed. Findings: Mild disc space narrowing is noted at L1-2 and L2-3. Scattered anterior osteophytes are seen. Disc protrusion is seen into the inferior endplate of L1 which appears to be chronic. Posterior disc space narrowing is noted at L3-4 and L4-5. Diffuse circumferential disc bulging is seen throughout the lumbar spine. No traumatic disc herniation is seen. No central canal stenosis is seen. Neural foramina are patent where the nerve roots exit. No fracture is seen. No abnormal subluxation is seen. Impression: 1. Mild diffuse degenerative change. 2. Nothing acute is appreciated on CT study of the lumbar spine. Diagnostic code #2 This report was dictated in MDT
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
--- NOTE | 2019-07-01 15:21 | PN ---
THC Physician - Brief Progress [id number]/06/2020 15:19[facility] Ethel Jacobo, JERRY - RAISA (KRISTAL) - GEOVANI GUERRADate of Service 07/01/2019 15:19HPI/Events o f Note eICU Admission AddendumUrinalysis nitrite positive with some pyuria, suggestive of UTI. Patien t noted to have concomitant leukocytosis, but no tachypnea, fever or tachycardia to suggest sepsis.Re commend initiation of antibiotics for UTI, ceftriaxone is a reasonable choice.Interventions Major-Inf ection - evaluation and management
[2019-07-01] MEDS: Pantoprazole 40 MG in Sodium Chloride 0.9% 10 ML IV SCH (15:24)
[2019-07-01] MEDS: Folic Acid 50 MG/10 ML MDV SUBCUT SCH (15:29)
[2019-07-01] MEDS ORDERED: Sodium Chloride 0.9% 1,000 ML IV SCH (15:30)
[2019-07-01] MEDS: Thiamine 100 MG in Sodium Chloride 0.9% 100 ML IV SCH (15:42)
[2019-07-01] MEDS ORDERED: Potassium Chloride 20 MEQ Tab.ER PO ONE (15:42)
[2019-07-01 15:59] LABS: BLOOD UREA NITROGEN,BUN 11 mg/dL (7.0-18.0); CARBON DIOXIDE,CO2 24.5 mmol/L (21.0-32.0); CHLORIDE,CL 68 mmol/L (98-107); GLUCOSE RANDOM 113 mg/dL (74-106); POTASSIUM,K 3.3 mmol/L (3.5-5.1)
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
[2019-07-01 16:09] LABS: SODIUM,NA 101 mmol/L (136-148)
[2019-07-01] MEDS: cefTRIAXone 1 GM in Premix Bag 1 BAG IV SCH (16:14)
[2019-07-01] MEDS: levETIRAcetam 500 MG Tab PO SCH ×2 (16:19→20:29)
[2019-07-01] MEDS: Heparin Sodium 5,000 Units/ML Vial SUBCUT SCH ×2 (16:20→23:36)
[2019-07-01 19:32] LABS: BLOOD UREA NITROGEN,BUN 13 mg/dL (7.0-18.0); CHLORIDE,CL 68 mmol/L (98-107); GLUCOSE RANDOM 118 mg/dL (74-106); POTASSIUM,K 3.4 mmol/L (3.5-5.1)
[2019-07-01 19:34] LABS: SODIUM,NA 101 mmol/L (136-148)
[2019-07-01] MEDS: Acetaminophen 325 MG Tab PO PRN (20:29)
[2019-07-01] MEDS: Sodium Chloride 1 GM Tab PO SCH (20:29)
[2019-07-01 23:25] LABS: BLOOD UREA NITROGEN,BUN 13 mg/dL (7.0-18.0); CARBON DIOXIDE,CO2 24.6 mmol/L (21.0-32.0); CHLORIDE,CL 72 mmol/L (98-107); GLUCOSE RANDOM 94 mg/dL (74-106); POTASSIUM,K 3.7 mmol/L (3.5-5.1)
[2019-07-01 23:27] LABS: SODIUM,NA 101 mmol/L (136-148)
[2019-07-02 03:25] LABS: BLOOD UREA NITROGEN,BUN 11 mg/dL (7.0-18.0); CARBON DIOXIDE,CO2 24.9 mmol/L (21.0-32.0); CHLORIDE,CL 77 mmol/L (98-107); GLUCOSE RANDOM 87 mg/dL (74-106); POTASSIUM,K 3.2 mmol/L (3.5-5.1)
[2019-07-02 03:30] LABS: SODIUM,NA 107 mmol/L (136-148)
[2019-07-02] MEDS: Heparin Sodium 5,000 Units/ML Vial SUBCUT SCH ×2 (07:32→15:41)
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
[2019-07-02 08:15] LABS: BLOOD UREA NITROGEN,BUN 10 mg/dL (7.0-18.0); CARBON DIOXIDE,CO2 25.4 mmol/L (21.0-32.0); CHLORIDE,CL 78 mmol/L (98-107); GLUCOSE RANDOM 84 mg/dL (74-106); POTASSIUM,K 2.9 mmol/L (3.5-5.1)
[2019-07-02 08:20] LABS: SODIUM,NA 110 mmol/L (136-148)
[2019-07-02] MEDS: Folic Acid 50 MG/10 ML MDV SUBCUT SCH (08:55)
[2019-07-02] MEDS: Potassium Chloride 20 MEQ Tab.ER PO SCH ×2 (08:56→13:35)
[2019-07-02] MEDS: Phosphorus #1 250 MG Tab PO SCH ×3 (08:56→18:00)
[2019-07-02] MEDS: levETIRAcetam 500 MG Tab PO SCH ×2 (08:56→21:36)
[2019-07-02] MEDS: Sodium Chloride 1 GM Tab PO SCH (09:13)
[2019-07-02] MEDS ORDERED: Folic Acid 1 MG Tab PO SCH (09:30)
[2019-07-02] MEDS: Albuterol/Ipratropium 3.0-0.5 MG/3 ML Neb Soln NEB PRN (09:48)
[2019-07-02] MEDS: Thiamine 100 MG Tab PO SCH (09:59)
[2019-07-02] MEDS: Thiamine 100 MG in Sodium Chloride 0.9% 100 ML IV SCH (10:04)
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
[2019-07-02] MEDS: Pantoprazole 40 MG in Sodium Chloride 0.9% 10 ML IV SCH (13:34)
[2019-07-02 13:36] LABS: BLOOD UREA NITROGEN,BUN 10 mg/dL (7.0-18.0); CARBON DIOXIDE,CO2 24.3 mmol/L (21.0-32.0); CHLORIDE,CL 80 mmol/L (98-107); GLUCOSE RANDOM 83 mg/dL (74-106); POTASSIUM,K 3.5 mmol/L (3.5-5.1)
[2019-07-02 13:40] LABS: SODIUM,NA 114 mmol/L (136-148)
--- NOTE | 2019-07-02 13:56 | PCM.SN.2 ---
- Free Text/Narrative Note: Na 114 at 1300 draw. Increasing a little too quickly, likely self correcting with fluid restriction. Discussed with EICU Dr Diaz and Dr Harry, will increase FR to 1500 ml daily. Add D5W 100 mls/hr now. Recheck BMP in 4 hours.
[2019-07-02] MEDS ORDERED: Dextrose 5% in Water 1,000 ML IV SCH (14:00)
[2019-07-02] MEDS: cefTRIAXone 1 GM in Premix Bag 1 BAG IV SCH (15:41)
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
[2019-07-02 17:54] LABS: BLOOD UREA NITROGEN,BUN 10 mg/dL (7.0-18.0); CARBON DIOXIDE,CO2 21.9 mmol/L (21.0-32.0); CHLORIDE,CL 80 mmol/L (98-107); GLUCOSE RANDOM 93 mg/dL (74-106); POTASSIUM,K 3.4 mmol/L (3.5-5.1)
[2019-07-02 18:04] LABS: SODIUM,NA 112 mmol/L (136-148)
[2019-07-02] MEDS ORDERED: Potassium Chloride 20 MEQ Tab.ER PO ONE ×2 (18:13→22:40)
[2019-07-02 22:31] LABS: BLOOD UREA NITROGEN,BUN 11 mg/dL (7.0-18.0); CARBON DIOXIDE,CO2 26.1 mmol/L (21.0-32.0); CHLORIDE,CL 83 mmol/L (98-107); GLUCOSE RANDOM 118 mg/dL (74-106); POTASSIUM,K 3.2 mmol/L (3.5-5.1)
[2019-07-02 22:32] LABS: SODIUM,NA 115 mmol/L (136-148)
[2019-07-02] MEDS ORDERED: Potassium Chloride Riders 40 MEQ in Premix Bag 1 BAG IV ONE (22:39)
[2019-07-02] MEDS: Dextrose 5% in Water 1,000 ML IV SCH (22:54)
[2019-07-03] MEDS: Dextrose 5% in Water 1,000 ML IV SCH ×3 (00:26→23:40)
[2019-07-03] MEDS: Phosphorus #1 250 MG Tab PO SCH ×5 (00:27→23:40)
[2019-07-03] MEDS: Heparin Sodium 5,000 Units/ML Vial SUBCUT SCH ×4 (00:28→23:40)
[2019-07-03 01:37] LABS: BLOOD UREA NITROGEN,BUN 9 mg/dL (7.0-18.0); CARBON DIOXIDE,CO2 28.1 mmol/L (21.0-32.0); CHLORIDE,CL 84 mmol/L (98-107); GLUCOSE RANDOM 115 mg/dL (74-106); POTASSIUM,K 3.5 mmol/L (3.5-5.1)
[2019-07-03 01:43] LABS: SODIUM,NA 114 mmol/L (136-148)
[2019-07-03] MEDS ORDERED: Ondansetron 4 MG/2 ML SDV IVPUSH PRN (02:43)
--- NOTE | 2019-07-03 02:46 | PN ---
THC Physician - Brief Progress [id number]/08/2020 02:44[facility] Ethel Jacobo, JERRY - RAISA (KRISTAL) - GEOVANI GUERRADate of Service 07/03/2019 02:44HPI/Events o f Note Acute hyponatremia, current sodium 114.Do not let sodium correct more than 115 until 10 AM on 07/03/2019.Nausea and QTC is 439. Ordered PRN Zofran.Interventions Major-Electrolyte abnormality - tavon luation and managementIntermediate-Communication with other healthcare providers and/or family, Medic ation change / dose adjustment
[2019-07-03 06:30] LABS: BLOOD UREA NITROGEN,BUN 10 mg/dL (7.0-18.0); CARBON DIOXIDE,CO2 24.9 mmol/L (21.0-32.0); CHLORIDE,CL 86 mmol/L (98-107); GLUCOSE RANDOM 94 mg/dL (74-106); POTASSIUM,K 3.9 mmol/L (3.5-5.1)
[2019-07-03 06:38] LABS: SODIUM,NA 117 mmol/L (136-148)
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
[2019-07-03] MEDS: levETIRAcetam 500 MG Tab PO SCH ×2 (09:00→21:25)
[2019-07-03] MEDS: Folic Acid 1 MG Tab PO SCH (09:00)
[2019-07-03] MEDS: Thiamine 100 MG Tab PO SCH (09:00)
[2019-07-03] MEDS: Benzocaine/Cetylpyridinium/Menthol Lozenge MUCMEM PRN (10:00)
--- NOTE | 2019-07-03 10:42 | PN ---
THC Physician - Brief Progress [id number]/08/2020 09:00[facility] Ethel Jacobo, [place] - MWN ([facility] - MWN BARBARAGEOVANI EDWARDSIsabelDate of Service 07/03/2019 09:00HPI/Events o f Note eICU Progress NotePt is a 68 yo M admitted on 06/30 for acute hyponatremia and ETOH withdrawl. H is sodiums have been as follows:06/30 1000 - 995/7 1000 - 1105/8 1000 - 1175/9 1000 - 125 (goal)His ini tial 24 hour rise was 11, but the last 24 hours it was 7, so has maintained appropriately with D5W at 75 cc/hr. His WBC's are 7.3 and he is on Keppra for an AED. Nursing reports that he has a CPAP at [facility] and is not using it here with sats the drop into the 80's while he is sleeping. We will re-order h is home CPAP and continue to monitor. He is currently resting comfortably in bed in NAD. Case was dis cussed with his nurse Marcel. Pt is going to transition to med surg this afternoon. eICU Recommendation s:1) Continue empiric Rocephin and Keppra2) Na goal for 07/03 at 1000 is 1253) Continue Q 4 hour lytes until Na > 1204) Resume home CPAP at 10/55) O2 via NC to maintain his SpO2 > 94%Thank you for kaciin g us to participate in the care of your patient.Interventions Major-Electrolyte abnormality - evaluat ion and management, Hypoxemia - evaluation and managementIntermediate-Communication with other health care providers and/or family, Medication change / dose adjustment
[2019-07-03 11:38] LABS: BLOOD UREA NITROGEN,BUN 11 mg/dL (7.0-18.0); CARBON DIOXIDE,CO2 23.8 mmol/L (21.0-32.0); CHLORIDE,CL 85 mmol/L (98-107); GLUCOSE RANDOM 112 mg/dL (74-106); POTASSIUM,K 3.8 mmol/L (3.5-5.1)
[2019-07-03 11:44] LABS: SODIUM,NA 118 mmol/L (136-148)
[2019-07-03] MEDS: Pantoprazole 40 MG in Sodium Chloride 0.9% 10 ML IV SCH (13:13)
[2019-07-03] MEDS: oxyCODONE 5 MG Tab PO PRN (13:27)
[2019-07-03] MEDS: cefTRIAXone 1 GM in Premix Bag 1 BAG IV SCH (16:05)
[2019-07-03 17:02] LABS: BLOOD UREA NITROGEN,BUN 9 mg/dL (7.0-18.0); CARBON DIOXIDE,CO2 26.6 mmol/L (21.0-32.0); CHLORIDE,CL 85 mmol/L (98-107); GLUCOSE RANDOM 102 mg/dL (74-106); POTASSIUM,K 3.8 mmol/L (3.5-5.1)
[2019-07-03 17:11] LABS: SODIUM,NA 119 mmol/L (136-148)
[2019-07-03 22:20] LABS: BLOOD UREA NITROGEN,BUN 10 mg/dL (7.0-18.0); CARBON DIOXIDE,CO2 25.4 mmol/L (21.0-32.0); CHLORIDE,CL 86 mmol/L (98-107); GLUCOSE RANDOM 114 mg/dL (74-106); POTASSIUM,K 3.4 mmol/L (3.5-5.1)
[2019-07-03 22:24] LABS: SODIUM,NA 119 mmol/L (136-148)
[2019-07-04] MEDS: Benzocaine/Cetylpyridinium/Menthol Lozenge MUCMEM PRN ×4 (02:42→19:52)
[2019-07-04] MEDS: oxyCODONE 5 MG Tab PO PRN (02:42)
[2019-07-04] MEDS: Phosphorus #1 250 MG Tab PO SCH ×3 (05:37→17:10)
[2019-07-04 07:18] LABS: BLOOD UREA NITROGEN,BUN 8 mg/dL (7.0-18.0); CHLORIDE,CL 86 mmol/L (98-107); GLUCOSE RANDOM 98 mg/dL (74-106); POTASSIUM,K 3.5 mmol/L (3.5-5.1)
[2019-07-04 07:19] LABS: SODIUM,NA 120 mmol/L (136-148)
[2019-07-04] MEDS: Thiamine 100 MG Tab PO SCH (08:10)
[2019-07-04] MEDS: Heparin Sodium 5,000 Units/ML Vial SUBCUT SCH ×2 (08:10→15:39)
[2019-07-04] MEDS: Folic Acid 1 MG Tab PO SCH (08:10)
[2019-07-04] MEDS: levETIRAcetam 500 MG Tab PO SCH (08:10)
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
[2019-07-04] MEDS: Acetaminophen 325 MG Tab PO PRN (10:21)
[2019-07-04 12:33] LABS: BLOOD UREA NITROGEN,BUN 8 mg/dL (7.0-18.0); CARBON DIOXIDE,CO2 25.9 mmol/L (21.0-32.0); CHLORIDE,CL 85 mmol/L (98-107); GLUCOSE RANDOM 111 mg/dL (74-106); POTASSIUM,K 3.6 mmol/L (3.5-5.1)
[2019-07-04 12:39] LABS: SODIUM,NA 119 mmol/L (136-148)
[2019-07-04] MEDS: Pantoprazole 40 MG in Sodium Chloride 0.9% 10 ML IV SCH (13:08)
[2019-07-04] MEDS: cefTRIAXone 1 GM in Premix Bag 1 BAG IV SCH (15:26)
[2019-07-04 18:48] LABS: BLOOD UREA NITROGEN,BUN 6 mg/dL (7.0-18.0); CARBON DIOXIDE,CO2 27.3 mmol/L (21.0-32.0); CHLORIDE,CL 86 mmol/L (98-107); GLUCOSE RANDOM 96 mg/dL (74-106); POTASSIUM,K 3.5 mmol/L (3.5-5.1)
[2019-07-04 18:51] LABS: SODIUM,NA 120 mmol/L (136-148)
[2019-07-05] MEDS: Phosphorus #1 250 MG Tab PO SCH ×3 (00:07→12:18)
[2019-07-05] MEDS: Heparin Sodium 5,000 Units/ML Vial SUBCUT SCH ×2 (00:07→06:53)
[2019-07-05 00:54] LABS: BLOOD UREA NITROGEN,BUN 8 mg/dL (7.0-18.0); CARBON DIOXIDE,CO2 30.3 mmol/L (21.0-32.0); CHLORIDE,CL 88 mmol/L (98-107); GLUCOSE RANDOM 102 mg/dL (74-106); POTASSIUM,K 3.9 mmol/L (3.5-5.1); SODIUM,NA 122 mmol/L (136-148)
[2019-07-05] MEDS: Benzocaine/Cetylpyridinium/Menthol Lozenge MUCMEM PRN ×2 (03:52→08:24)
[2019-07-05 07:08] LABS: BLOOD UREA NITROGEN,BUN 7 mg/dL (7.0-18.0); CARBON DIOXIDE,CO2 29.8 mmol/L (21.0-32.0); CHLORIDE,CL 88 mmol/L (98-107); GLUCOSE RANDOM 93 mg/dL (74-106); POTASSIUM,K 3.9 mmol/L (3.5-5.1); SODIUM,NA 123 mmol/L (136-148)
[2019-07-05] MEDS: Folic Acid 1 MG Tab PO SCH (08:24)
[2019-07-05] MEDS: Thiamine 100 MG Tab PO SCH (08:24)
[2019-07-05] MEDS: Albuterol/Ipratropium 3.0-0.5 MG/3 ML Neb Soln NEB PRN (09:41)
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
[2019-07-05] MEDS: cefTRIAXone 1 GM in Premix Bag 1 BAG IV SCH (12:19)
[2019-07-05 12:34] LABS: BLOOD UREA NITROGEN,BUN 8 mg/dL (7.0-18.0); CARBON DIOXIDE,CO2 28.6 mmol/L (21.0-32.0); CHLORIDE,CL 89 mmol/L (98-107); GLUCOSE RANDOM 122 mg/dL (74-106); POTASSIUM,K 3.7 mmol/L (3.5-5.1); SODIUM,NA 123 mmol/L (136-148)
== END 2019-07-05 14:15 | disposition home or self-care (01) | DRG 896 ==
LOC: MW.ED 09:59 → MW.ICU 13:05 → MW.MS 07-03 11:27
PROVIDERS: ADMIT Student in an Organized Health Care Education/Training Program; ATTEND Student in an Organized Health Care Education/Training Program
PROC: 3E0234Z Introduction of Serum, Toxoid and Vaccine into Muscle, Percutaneous Approach (ICD-10-PCS; principal; 2019-07-01)
DX: F10.239 Alcohol dependence with withdrawal, unspecified (principal); R41.82 Altered mental status, unspecified; M25.561 Pain in right knee; I10 Essential (primary) hypertension; F10.10 Alcohol abuse, uncomplicated; Y90.9 Presence of alcohol in blood, level not specified; G93.41 Metabolic encephalopathy; E87.1 Hypo-osmolality and hyponatremia; N39.0 Urinary tract infection, site not specified; J44.9 Chronic obstructive pulmonary disease, unspecified; N18.9 Chronic kidney disease, unspecified; B95.61 Methicillin susceptible Staphylococcus aureus infection as the cause of diseases classified elsewhere; I12.9 Hypertensive chronic kidney disease with stage 1 through stage 4 chronic kidney disease, or unspecified chronic kidney disease; F17.210 Nicotine dependence, cigarettes, uncomplicated; V89.2XXA Person injured in unspecified motor-vehicle accident, traffic, initial encounter; Z79.899 Other long term (current) drug therapy; Z99.81 Dependence on supplemental oxygen; Z23 Encounter for immunization
CPT/HCPCS: 36415; 70450; 71045; 72125; 73562; 80048; 80053; 80305; 80307; 81001; 83735; 83930; 83935; 84100; 84300; 84443; 85025; 85610; 85730; 87086; 87186; 90471; 90715; 93005; 96374; 99285; J0696; J7040; J7050; 71250; 71250-26; 72128; 72128-26; 72131; 72131-26; 74176; 74176-26; 87077; 87324; 94640; 96375; 97161-GP; 97530-GP; 99291; A9270-GY; C9113; J1644; J2405; J3411; J3480; J7060; J7620-GY

== ENCOUNTER 2019-07-16 17:54 | Emergency (ER) | payer MEDICARE, OTHER, MEDICAID ==
[2019-07-16] MEDS ORDERED: methylPREDNISolone Sodium Succinate 125 MG/2 ML SDV IVPUSH ONE (18:12)
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
[2019-07-16 18:40] LABS: BLOOD UREA NITROGEN,BUN 5 mg/dL (7.0-18.0); CARBON DIOXIDE,CO2 22.3 mmol/L (21.0-32.0); CHLORIDE,CL 91 mmol/L (98-107); GLUCOSE RANDOM 96 mg/dL (74-106); POTASSIUM,K 4.8 mmol/L (3.5-5.1); SODIUM,NA 124 mmol/L (136-148)
--- NOTE | 2019-07-16 19:17 | CR ---
Chest: Portable view of the chest was obtained. Comparison: Prior chest x-ray of 07/01/19. Heart size is normal. Tortuous thoracic aorta is seen. Minimal left basilar atelectasis is seen. Lungs otherwise are clear. Impression: 1. Slight left basilar atelectasis. 2. Nothing acute is otherwise seen on portable chest x-ray. Diagnostic code #2 This report was dictated in MDT
[2019-07-16] MEDS ORDERED: Albuterol/Ipratropium 3.0-0.5 MG/3 ML Neb Soln NEB ONE (19:34)
[2019-07-16] MEDS ORDERED: Albuterol 0.083% 2.5 MG/3 ML Neb Soln NEB ONE (19:35)
[2019-07-16] MEDS ORDERED: Acetaminophen 500 MG Tab PO ONE (19:35)
[2019-07-16] MEDS ORDERED: Ibuprofen 400 MG Tab PO ONE (19:35)
[2019-07-16] MEDS ORDERED: Iopamidol 755 MG/ML 200 ML Multipack Bottle IVPUSH ONE (19:57)
[2019-07-16] MEDS ORDERED: Albuterol/Ipratropium 3.0-0.5 MG/3 ML Neb Soln ONE (20:11)
--- NOTE | 2019-07-16 20:27 | CT ---
CT chest Technique: Multiple axial sections through the chest were obtained. Intravenous contrast was utilized. Study has been performed as a pulmonary angiogram protocol. Findings: Pulmonary arteries are moderately well opacified. No filling defects are seen to indicate pulmonary embolism. Atherosclerotic change is noted within the aorta. No aneurysm is seen. Mediastinum and hilar region show no adenopathy. No pericardial thickening is seen. Visualized upper abdominal structures show nothing acute. Lungs show emphysematous change. No acute parenchymal change is seen. No pulmonary nodule is appreciated. No pleural effusions are noted. No pneumothorax is seen. Bone window settings were reviewed. No acute osseous finding is appreciated. There is minimal cortical disruption within the upper sternum which is most likely due to respiratory motion artifact rather than fracture if patient has no history of acute trauma. Impression: 1. No findings of pulmonary embolism. 2. Emphysematous change. 3. Nothing acute is appreciated. Diagnostic code #2 This report was dictated in MDT
== END 2019-07-16 21:47 | disposition home or self-care (01) ==
LOC: MW.ED 17:54
DX: J44.1 Chronic obstructive pulmonary disease with (acute) exacerbation (principal); E87.1 Hypo-osmolality and hyponatremia; I12.9 Hypertensive chronic kidney disease with stage 1 through stage 4 chronic kidney disease, or unspecified chronic kidney disease; N18.9 Chronic kidney disease, unspecified; F17.210 Nicotine dependence, cigarettes, uncomplicated; Z79.899 Other long term (current) drug therapy; Z20.828 Contact with and (suspected) exposure to other viral communicable diseases
CPT/HCPCS: 71045; 71275; 80053; 80307; 82803; 83605; 84484; 85025; 85379; 93005; 94640; 96374; 99285; A9270; J2930; Q9967; U0002; 99284; J7620-GY

== ENCOUNTER 2019-07-19 11:45 | Emergency (ER) | payer MEDICARE ==
[2019-07-19] MEDS ORDERED: Sodium Chloride 0.9% 10 ML Syringe FLUSH PRN (11:48)
[2019-07-19] MEDS ORDERED: Sodium Chloride 0.9% 2.5 ML Syringe FLUSH PRN (11:48)
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
[2019-07-19] MEDS ORDERED: Morphine 4 MG/ML Syringe IVPUSH ONE (12:12)
[2019-07-19] MEDS ORDERED: Ondansetron 4 MG/2 ML SDV IVPUSH ONE (12:12)
[2019-07-19] MEDS ORDERED: Nitroglycerin 0.4 MG Tab.SL SL PRN (12:12)
--- NOTE | 2019-07-19 12:19 | CR ---
Indication: Chest pain. Technique: AP portable view of the chest. Comparison: July 16, 2019. Findings: The heart is normal in size. The lungs are clear. No infiltrate, pleural effusion, pneumothorax is identified. Impression: No acute cardiopulmonary process Dictated by Rae Rojas MD @ Jul 19 2019 12:17PM Signed by Dr. Rae Rojas @ Jul 19 2019 12:18PM
[2019-07-19 12:41] LABS: BLOOD UREA NITROGEN,BUN 12 mg/dL (7.0-18.0); CARBON DIOXIDE,CO2 23.9 mmol/L (21.0-32.0); CHLORIDE,CL 90 mmol/L (98-107); GLUCOSE RANDOM 107 mg/dL (74-106); POTASSIUM,K 4.1 mmol/L (3.5-5.1); SODIUM,NA 126 mmol/L (136-148)
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
== END 2019-07-19 16:35 | disposition home or self-care (01) ==
LOC: MW.ED 11:45
DX: S22.22XA Fracture of body of sternum, initial encounter for closed fracture (principal); E87.1 Hypo-osmolality and hyponatremia; F10.20 Alcohol dependence, uncomplicated; J44.9 Chronic obstructive pulmonary disease, unspecified; I10 Essential (primary) hypertension; F17.210 Nicotine dependence, cigarettes, uncomplicated; Z79.899 Other long term (current) drug therapy; V89.2XXA Person injured in unspecified motor-vehicle accident, traffic, initial encounter
CPT/HCPCS: 36415; 71045; 71250; 80053; 80307; 84484; 85025; 85610; 93005; 96374; 96375; 99285; A9270; J2270; J2405

== ENCOUNTER 2020-11-15 07:35 | Emergency (ER) | payer MEDICARE, MEDICAID ==
[2020-11-15] MEDS ORDERED: Morphine 2 MG/ML SYRINGE IVPUSH ONE (07:55)
[2020-11-15] MEDS ORDERED: Lidocaine 4% Top Soln 50 ML Bottle MUCMEM ONE (07:56)
--- NOTE | 2020-11-15 08:07 | EDM.PDOC ---
ED HPI GENERAL MEDICAL PROBLEM - General Chief Complaint: Respiratory Problem Stated Complaint: DIFFICULTY BREATHING Time Seen by Provider: 11/15/20 07:54 Source of Information: Reports: Patient History Limitations: Reports: No Limitations - History of Present Illness INITIAL COMMENTS - FREE TEXT/NARRATIVE: Patient is a 70-year-old male with a history of throat cancer who received radiation a few days ago presents today for increased throat pain and shortness of breath. States he has a more increasing pain in his right side of his throat after the radiation he now has pain when he is swallowing. Patient states he still feels eating swallow saliva and get air in and out but just irritated and raw feeling inside of his throat. He denies any cough fever chills any leg s welling any nausea vomiting or other complaints. - Related Data Allergies Allergy/AdvReac Type Severity Reaction Status Date / Time No Known Allergies Allergy Verified 07/19/19 11:53 Home Meds: Home Meds Olmesartan Medoxomil 40 mg PO DAILY 07/01/19 [History] amLODIPine [Norvasc] 5 mg PO WITHDINNER 07/01/19 [History] Folic Acid 1 mg PO DAILY #30 tablet 07/05/19 [Rx] Thiamine [Vitamin B-1] 100 mg PO DAILY #30 tablet 07/05/19 [Rx] Albuterol Sulfate [Albuterol Sulfate Hfa] 1 - 2 puff IH Q4H PRN #1 unit 07/16/19 [Rx] predniSONE [Prednisone] 60 mg PO DAILY 4 Days #12 tablet 07/16/19 [Rx] Acetaminophen [Tylenol Extra Strength] 500 mg PO Q6H PRN #15 tab 07/19/19 [Rx] Past Medical History HEENT History: Reports: None Cardiovascular History: Reports: Hypertension Respiratory History: Reports: COPD Gastrointestinal History: Reports: None Genitourinary History: Reports: Acute Renal Failure, Chronic Renal Insuffiency Musculoskeletal History: Reports: None Neurological History: Reports: None Psychiatric History: Reports: Addiction, Other (See Below) Other Psychiatric History: pt states "I used to love marijuana, that maybe 25 years ago" Endocrine/Metabolic History: Reports: None Hematologic History: Reports: None Immunologic History: Reports: None Oncologic (Cancer) History: Reports: None Dermatologic History: Reports: None - Infectious Disease History Infectious Disease History: Reports: Chicken Pox - Past Surgical History Head Surgeries/Procedures: Reports: None HEENT Surgical History: Reports: None Cardiovascular Surgical History: Reports: None Respiratory Surgical History: Reports: None GI Surgical History: Reports: None Male Surgical History: Reports: None Endocrine Surgical History: Reports: None Neurological Surgical History: Reports: None Musculoskeletal Surgical History: Reports: Arthroscopic Knee Oncologic Surgical History: Reports: None Dermatological Surgical History: Reports: None Social & Family History - Family History Family Medical History: No Pertinent Family History - Tobacco Use Tobacco Use Status *Q: Never Tobacco User - Caffeine Use Caffeine Use: Reports: None - Recreational Drug Use Recreational Drug Use: No - Living Situation & Occupation Occupation: Retired ED ROS GENERAL - Review of Systems Review Of Systems: See Below Constitutional: Reports: No Symptoms HEENT: Reports: No Symptoms Respiratory: Reports: Shortness of Breath Cardiovascular: Reports: No Symptoms Endocrine: Reports: No Symptoms GI/Abdominal: Reports: No Symptoms : Reports: No Symptoms Musculoskeletal: Reports: No Symptoms Skin: Reports: No Symptoms Neurological: Reports: No Symptoms Psychiatric: Reports: No Symptoms Hematologic/Lymphatic: Reports: No Symptoms Immunologic: Reports: No Symptoms ED EXAM, GENERAL - Physical Exam Exam: See Below Exam Limited By: No Limitations General Appearance: Alert, WD/WN, No Apparent Distress Eye Exam: Bilateral Eye: EOMI, PERRL Head: Atraumatic Neck: Non-Tender, Full Range of Motion, Other (Pain to right side of throat no stridor heard) Respiratory/Chest: No Respiratory Distress, Lungs Clear, Normal Breath Sounds Cardiovascular: Normal Peripheral Pulses, Regular Rate, Rhythm GI/Abdominal: Normal Bowel Sounds, Soft, Non-Tender Extremities: Normal Inspection Neurological: Alert, Oriented, Normal Cognition #1 Interpretation EKG Date: 11/15/20 Time: 07:41 Rhythm: NSR Rate (Beats/Min): 91 ST-T: Normal Course - Vital Signs Last Recorded V/S: Last Vital Signs Temp 97.8 F 11/15/20 07:39 Pulse 109 H 11/15/20 13:39 Resp 18 11/15/20 07:39 BP 135/87 11/15/20 13:39 Pulse Ox 97 11/15/20 13:39 - Orders/Labs/Meds Labs: Laboratory Tests 11/15/20 11/15/20 Range/Units 08:44 08:44 WBC 14.51 H (4.0-11.0) K/uL RBC 4.72 (4.50-5.90) M/uL Hgb 15.5 (13.0-17.0) g/dL Hct 42.7 (38.0-50.0) % MCV 90.5 (80.0-98.0) fL MCH 32.8 H (27.0-32.0) pg MCHC 36.3 (31.0-37.0) g/dL RDW Std Deviation 42.8 (28.0-62.0) fl RDW Coeff of Bria 13 (11.0-15.0) % Plt Count 337 (150-400) K/uL MPV 8.70 (7.40-12.00) fL Neut % (Auto) 83.8 H (48.0-80.0) % Lymph % (Auto) 6.8 L (16.0-40.0) % [place] % (Auto) 9.2 (0.0-15.0) % Eos % (Auto) 0.1 (0.0-7.0) % Baso % (Auto) 0.1 (0.0-1.5) % Neut # (Auto) 12.2 H (1.4-5.7) K/uL Lymph # (Auto) 1.0 (0.6-2.4) K/uL [place] # (Auto) 1.3 H (0.0-0.8) K/uL Eos # (Auto) 0.0 (0.0-0.7) K/uL Baso # (Auto) 0.0 (0.0-0.1) K/uL Nucleated RBC % 0.0 /100WBC Nucleated RBCs # 0 K/uL Sodium 132 L (136-148) mmol/L Potassium 3.8 (3.5-5.1) mmol/L Chloride 94 L (98-107) mmol/L Carbon Dioxide 28.0 (21.0-32.0) mmol/L BUN 7 (7.0-18.0) mg/dL Creatinine 0.6 L (0.8-1.3) mg/dL Est Cr Clr Drug Dosing 119.98 mL/min Estimated GFR (MDRD) > 60.0 ml/min Glucose 125 H (74-106) mg/dL Calcium 9.0 (8.5-10.1) mg/dL Total Bilirubin 0.4 (0.2-1.0) mg/dL AST 14 L (15-37) IU/L ALT 18 (14-63) IU/L Alkaline Phosphatase 88 (46-116) U/L Total Protein 7.4 (6.4-8.2) g/dL Albumin 3.5 (3.4-5.0) g/dL Globulin 3.9 (2.6-4.0) g/dL Albumin/Globulin Ratio 0.9 (0.9-1.6) Meds: Medications Discontinued Medications Generic Name Dose Route Start Last Admin Trade Name Freq PRN Reason Stop Dose Admin Dexamethasone 10 mg 11/15/20 13:57 Dexamethasone 10 Mg/Ml Sdv IVPUSH 11/15/20 13:58 ONETIME ONE Lidocaine HCl 5 ml 11/15/20 07:56 11/15/20 08:52 Lidocaine 4% Top Soln 50 Ml Bottle MUCMEM 11/15/20 07:57 5 ml ONETIME ONE Administration Morphine Sulfate 2 mg 11/15/20 07:55 11/15/20 08:05 Morphine 2 Mg/Ml Syringe IVPUSH 11/15/20 07:56 2 mg ONETIME ONE Administration - Re-Assessments/Exams Free Text/Narrative Re-Assessment/Exam: 11/15/20 14:03 Patient continues states that he feels as though is becoming tighter. Patient sat 90% on room air. We did a CAT scan that shows some worsening swelling and some narrowing of his airway. Because of this we spoke to his oncologist Dr. Vieira who is at [email or web address]. We spoke to the ER physician or Dr. Gastelum who was up to the patient to be evaluated by possible ENT and by oncology patient will be given steroids and transferred. Departure - Departure Time of Disposition: 14:04 Disposition: DC/Tfer to Acute Hospital 02 Condition: Good Clinical Impression: Airway compromise - Discharge Information Forms: ED Department Discharge Critical Care Note - Critical Care Note Total Time (mins): 45 Comments: Critical Care Procedure Note Authorized and Performed by: Dr. Alejo Total critical care time: Approximately Due to a high probability of clinically significant, life threatening deterioration, the patient required my highest level of preparedness to intervene emergently and I personally spent this critical care time directly and personally managing the patient. This critical care time included obtaining a history; examining the patient; pulse oximetry; ordering and review of studies; arranging urgent treatment with development of a management plan; evaluation of patient's response to treatment; frequent reassessment; and, discussions with other providers. This critical care time was performed to assess and manage the high probability of imminent, life-threatening deterioration that could result in multi-organ failure. It was exclusive of separately billable procedures and treating other patients and teaching time. Sepsis Event Note (ED) - Evaluation Sepsis Screening Result: No Definite Risk - Focused Exam Vital Signs: Vital Signs Temp Pulse Resp BP Pulse Ox 11/15/20 13:39 109 H 135/87 97 11/15/20 10:54 88 146/83 H 95 11/15/20 09:48 85 143/80 H 95 11/15/20 08:51 82 141/78 H 95 11/15/20 07:39 97.8 F 94 18 147/75 H 96 - Assessment/Plan Plan: Patient is a 70-year-old male who presents today for throat pain and pain with swallowing. Patient recently had radiation for throat cancer. Patient has no stridor and lungs are clear. We will provide pain control and obtain a CT imaging of his neck and reassess.
--- NOTE | 2020-11-15 09:07 | CR ---
INDICATION: Shortness of breath. Recent neck radiation. TECHNIQUE: Chest 1 views. COMPARISON: 04/26/2020. FINDINGS: Cardiovascular and mediastinum: Heart size and vasculature are normal in caliber and appearance. Lungs and pleural spaces: Lungs are hyperinflated but otherwise clear. No sign of infiltrate or mass. No sign of pleural effusion. No pneumothorax. Bones and soft tissues: No significant findings. IMPRESSION: No acute findings and no significant changes from the prior exam. No specific finding to explain shortness of breath. Dictated by Carlyle Walton MD @ 11/15/2020 9:06:19 AM (Electronically Signed)
[2020-11-15 09:29] LABS: BLOOD UREA NITROGEN,BUN 7 mg/dL (7.0-18.0); CHLORIDE,CL 94 mmol/L (98-107); GLUCOSE RANDOM 125 mg/dL (74-106); POTASSIUM,K 3.8 mmol/L (3.5-5.1); SODIUM,NA 132 mmol/L (136-148)
--- NOTE | 2020-11-15 10:01 | CT ---
INDICATION: Recent throat radiation. Now increased swelling and difficulty swallowing TECHNIQUE: CT of the neck without contrast agent. Coronal and sagittal reformats using bone and soft tissue algorithm. COMPARISON: No prior studies available for comparison at this institution. FINDINGS: There is moderate swelling of the larynx involving the right area epiglottic fold, right false vocal cord, right true vocal cord and bilateral paraglottic fat which may be secondary to post radiation changes. Evaluation is limited on this noncontrast study. 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 There is a solid mass in the left parotid gland measuring 2.3 x 1.3 cm. There are scattered atherosclerotic calcifications within the aortic arch and branch vessels, as well as at the carotid bifurcations. The paranasal sinuses and mastoid air cells are clear. Incidental small osteoma in the right ethmoid air cells. The patient is maxillary edentulous. The infrahyoid spaces are normal. There is straightening of cervical spine alignment. No aggressive osseous lesions. The craniocervical junction is unremarkable. No significant prevertebral or paraspinal edema. At C5-6 there is moderate to severe left neural foraminal narrowing due to uncovertebral spurring. Multilevel mild disc bulges and endplate osteophytic spurring with mild spinal canal narrowing at C4-5, C5-6 and C6-7 no lytic or blastic process within the imaged osseous structures. The paraspinous muscles are symmetric and normal in appearance. Visualized portions of the brain are within normal limits. The orbital contents are normal. No abnormality is demonstrated in the mediastinum or supraclavicular regions. No pneumothorax or pleural effusion. Emphysema bilaterally. IMPRESSION: 1. There is moderate swelling of the larynx involving the right area epiglottic fold, right false vocal cord, right true vocal cord and bilateral paraglottic fat which may be secondary to post radiation changes, however evaluation for residual or recurrent neoplasm is limited on this noncontrast study. 2. 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 There is a solid mass in the left parotid gland measuring 2.3 x 1.3 cm. Differential considerations include primary salivary gland neoplasms or pathologic/metastatic intraparotid lymph nodes. Please note that all CT scans at this facility use dose modulation, iterative reconstruction, and/or weight-based dosing when appropriate to reduce radiation dose to as low as reasonably achievable. Dictated by Ran Farrell MD @ 11/15/2020 9:59:46 AM (Electronically Signed)
--- NOTE | 2020-11-15 13:30 | CT ---
INDICATION: Neck swelling. Question abscess versus neoplasm. Scan repeated with contrast. TECHNIQUE: CT images were acquired from the orbits to the superior mediastinum during infusion of iodinated contrast. COMPARISON: Noncontrast CT scan of the neck obtained earlier today. FINDINGS: There is moderate swelling of the larynx involving the right area epiglottic fold, right false vocal cord, right true vocal cord and bilateral paraglottic fat which narrows the supraglottic airway. 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 There is a solid mass in the left parotid gland measuring 2.3 x 1.3 cm. There are scattered atherosclerotic calcifications within the aortic arch and branch vessels, as well as at the carotid bifurcations. The paranasal sinuses and mastoid air cells are clear. Incidental small osteoma in the right ethmoid air cells. The patient is maxillary edentulous. The infrahyoid spaces are normal. There is straightening of cervical spine alignment. No aggressive osseous lesions. The craniocervical junction is unremarkable. No significant prevertebral or paraspinal edema. At C5-6 there is moderate to severe left neural foraminal narrowing due to uncovertebral spurring. Multilevel mild disc bulges and endplate osteophytic spurring with mild spinal canal narrowing at C4-5, C5-6 and C6-7 no lytic or blastic process within the imaged osseous structures. The paraspinous muscles are symmetric and normal in appearance. Visualized portions of the brain are within normal limits. The orbital contents are normal. No abnormality is demonstrated in the mediastinum or supraclavicular regions. No pneumothorax or pleural effusion. Emphysema bilaterally. IMPRESSION: 1. There is moderate swelling of the larynx involving the right supraglottic larynx (aryepiglottic fold, right false vocal cord, right true vocal cord and bilateral paraglottic fat), consistent with residual/recurrent neoplasm and/or post radiation changes. Associated significant narrowing of the airway. 2. 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 There is a solid mass in the left parotid gland measuring 2.3 x 1.3 cm. Differential considerations include primary salivary gland neoplasms or pathologic/metastatic intraparotid lymph nodes. Please note that all CT scans at this facility use dose modulation, iterative reconstruction, and/or weight-based dosing when appropriate to reduce radiation dose to as low as reasonably achievable. Dictated by Adalberto Garcia MD @ 11/15/2020 1:29:23 PM (Electronically Signed)
[2020-11-15] MEDS ORDERED: Dexamethasone 10 MG/ML SDV IVPUSH ONE (13:57)
[2020-11-15] MEDS ORDERED: Iopamidol 755 MG/ML 500 ML Multipack Bottle IVPUSH STA (14:06)
== END 2020-11-15 15:40 ==
LOC: MW.ED 07:35
DX: J98.8 Other specified respiratory disorders (principal); I10 Essential (primary) hypertension; J44.9 Chronic obstructive pulmonary disease, unspecified; Z79.899 Other long term (current) drug therapy
CPT/HCPCS: 36415; 70490; 70491; 71045; 80053; 85025; 93005; 96374; 96375; 99285; J1100; J2270; Q9967

== ENCOUNTER 2020-11-24 21:25 | Emergency (ER) | payer MEDICARE, MEDICAID ==
[2020-11-24] MEDS ORDERED: Sodium Chloride 0.9% 10 ML Syringe FLUSH PRN (21:35)
[2020-11-24] MEDS ORDERED: Sodium Chloride 0.9% 2.5 ML Syringe FLUSH PRN (21:35)
[2020-11-24 22:10] LABS: BLOOD UREA NITROGEN,BUN 19 mg/dL (7.0-18.0); CARBON DIOXIDE,CO2 26.3 mmol/L (21.0-32.0); CHLORIDE,CL 97 mmol/L (98-107); GLUCOSE RANDOM 131 mg/dL (74-106); POTASSIUM,K 4.2 mmol/L (3.5-5.1); SODIUM,NA 136 mmol/L (136-148)
[2020-11-24] MEDS ORDERED: Acetaminophen 500 MG Tab PO ONE (22:20)
[2020-11-24] MEDS ORDERED: Morphine 2 MG/ML SYRINGE IVPUSH ONE (22:22)
--- NOTE | 2020-11-24 22:46 | CR ---
INDICATION: Shortness of breath TECHNIQUE: Portable upright AP view of the chest COMPARISON: AP chest radiograph 11/15/2020 FINDINGS: Focal airspace opacity is noted in the medial right lung base. The left lung is clear. There is no sizable pleural effusion or pneumothorax. The cardiac silhouette is borderline enlarged. The visualized osseous structures are unremarkable. IMPRESSION: Medial right lung base opacity suspicious for infiltrate. Correlate clinically. Dictated by Enrique Mak MD @ 11/24/2020 10:45:04 PM (Electronically Signed)
[2020-11-25] MEDS ORDERED: methylPREDNISolone Sodium Succinate 125 MG/2 ML SDV IVPUSH ONE (00:52)
[2020-11-25] MEDS ORDERED: Sodium Chloride 0.9% 2.5 ML Syringe FLUSH PRN (00:52)
[2020-11-25] MEDS ORDERED: Sodium Chloride 0.9% 1,000 ML IV ONE (00:52)
[2020-11-25] MEDS ORDERED: Piperacillin/Tazobactam 4.5 GM in Sodium Chloride 0.9% 100 ML IV ONE (00:52)
[2020-11-25] MEDS ORDERED: Sodium Chloride 0.9% 10 ML Syringe FLUSH PRN (00:52)
[2020-11-25] MEDS ORDERED: Albuterol/Ipratropium 3.0-0.5 MG/3 ML Neb Soln NEB ONE (01:11)
[2020-11-25] MEDS ORDERED: Albuterol/Ipratropium 3.0-0.5 MG/3 ML Neb Soln ONE (01:12)
--- NOTE | 2020-11-25 02:39 | EDM.PDOC ---
ED HPI GENERAL MEDICAL PROBLEM - General Chief Complaint: Respiratory Problem Stated Complaint: DIFFICULTY BREATHING Time Seen by Provider: 11/24/20 21:38 - History of Present Illness INITIAL COMMENTS - FREE TEXT/NARRATIVE: HISTORY AND PHYSICAL: History of present illness: This is a 70-year-old gentleman with history significant for laryngeal cancer, COPD, hypertension, seizure disorder with history of alcohol use disorder, who presents ER today secondary to shortness of breath and wheezing that started earlier today. Patient reports that has been having a significant amount of increased green secretions from his tracheostomy. Patient reports has had no fevers, shakes, chills. Patient reports increased cough and congestion. Patient reports he does not use any oxygen at baseline at home with his tracheostomy. Patient reports that his secretions become much thicker and more purulent than usual. Upon arrival to the ED patient reports that he has had no nausea or vomiting or diarrhea. Patient reports that he does use PEG tube feeds secondary to inability to tolerate a significant amount of p.o.'s. Review of systems: As per history of present illness and below otherwise all systems reviewed and negative. Past medical history: As per history of present illness and as reviewed below otherwise noncontributory. Surgical history: As per history of present illness and as reviewed below otherwise noncontr ibutory. Social history: No reported history of drug abuse. Family history: As per history of present illness and as reviewed below otherwise noncontributory. Physical exam: This patient was seen and evaluated during the 2019 SARS-CoV-2 novel coronavirus pandemic period. Community viral transmission is ongoing at time of this encounter and the emergency department is operating under pandemic response procedures. Constitutional: Patient is oriented to person, place, and time. Appears well- developed and well-nourished. No distress. HEENT: Moist mucous membranes Head: Normocephalic and atraumatic Eyes: Right eye exhibits no discharge. Left eye exhibits no discharge. No scleral icterus Neck: Normal range of motion. No tracheal deviation present. Cardiovascular: Normal rate and regular rhythm. Pulmonary: Effort normal, no respiratory distress. Abdominal: No distention Musculoskeletal: Normal range of motion Neurologic: Alert and oriented to person, place and time. Skin: [place], warm and dry. Psychiatric: Normal mood and affect. Behavior is normal. Judgment and thought content normal. Nursing note and vital signs have been reviewed Patient is here physical exam is significant for tracheostomy that is in place with a significant amount of green purulent secretions. Patient has diffuse inspiratory expiratory wheezing and appears to be tachypneic upon presentation. Patient does not appear to be in extremitas. Patient's pulse ox was 84% on room air upon arrival. Diagnostics: Chest x-ray: Consistent with right middle lobe pneumonia. EKG: As interpreted by ER physician: Llu[place]: Nonspecific ST-T wave abnormalities Normal axis No evidence of ST elevation ME Normal sinus rhythm heart rate of 82 November 24, 2020 9:44 PM Covid negative CBC, CMP, lactic acid within normal limits. Blood cultures x2 obtained and sent Therapeutics: DuoNeb x3 in the ED, Solu-Medrol 125 IV Zosyn 4.5 g IV Assessment and plan: 70-year-old gentleman with history significant for laryngeal CA who presents ER today secondary to shortness of breath. Patient does have a history significant for COPD and I believe that his presentation today is consistent with a COPD ex acerbation secondary to a pneumonia in his right middle lobe. This may be secondary to aspiration given that he does have a feeding tube in place. Patient does not recall any episodes of emesis. After the neb treatments, the patient reports that he feels much better but is still hypoxic on room air. Patient has been placed on humidified O2 with 5 L of trach mask. Patient does feel much better with that. Given the patient's COPD exacerbation, pneumonia, and his multiple comorbidities, the patient will need to be admitted to the hospital. We do not have any beds available here at this time. [facility]: No beds available [facility]: No beds available [facility]: Has beds available for transfer. I did discuss the case with Dr. Ross who is agreed to except patient for transfer. Critical Care: The high probability of sudden, clinically significant deterioration in the patient's condition required the highest level of my preparedness to intervene urgently. The services I provided to this patient were to treat and/or prevent clinically significant deterioration. Services included the following: chart data review, reviewing nursing notes and/or old charts, documentation time, [employer] retailer sales consultant collaboration regarding findings and treatment options, medication orders and management, direct patient care, vital sign assessments and ordering, interpreting and reviewing diagnostic studies/lab tests. Aggregate critical care time includes only time during which I was engaged inwork directly related to the patient's care, as described above, wh ether at the bedside or elsewhere in the Emergency Department. It did not include time spent performing other reported procedures or the services of residents, students, nurses or physician assistants. Critical Care Time: 35 minutes Definitive disposition and diagnosis as appropriate pending reevaluation and review of above. - Related Data Allergies Allergy/AdvReac Type Severity Reaction Status Date / Time No Known Allergies Allergy Verified 11/24/20 21:28 Home Meds: Home Meds Olmesartan Medoxomil 40 mg PO DAILY 07/01/19 [History] amLODIPine [Norvasc] 5 mg PO WITHDINNER 07/01/19 [History] Folic Acid 1 mg PO DAILY #30 tablet 07/05/19 [Rx] Thiamine [Vitamin B-1] 100 mg PO DAILY #30 tablet 07/05/19 [Rx] Albuterol Sulfate [Albuterol Sulfate Hfa] 1 - 2 puff IH Q4H PRN #1 unit 07/16/19 [Rx] predniSONE [Prednisone] 60 mg PO DAILY 4 Days #12 tablet 07/16/19 [Rx] Acetaminophen [Tylenol Extra Strength] 500 mg PO Q6H PRN #15 tab 07/19/19 [Rx] Past Medical History HEENT History: Reports: None Cardiovascular History: Reports: Hypertension Respiratory History: Reports: COPD Gastrointestinal History: Reports: None Genitourinary History: Reports: Acute Renal Failure, Chronic Renal Insuffiency Musculoskeletal History: Reports: None Neurological History: Reports: None Psychiatric History: Reports: Addiction Other Psychiatric History: pt states "I used to love marijuana, that maybe 25 years ago" Endocrine/Metabolic History: Reports: None Hematologic History: Reports: None Immunologic History: Reports: None Oncologic (Cancer) History: Reports: Other (See Below) Other Oncologic History: throat CA Dermatologic History: Reports: None - Infectious Disease History Infectious Disease History: Reports: Chicken Pox - Past Surgical History Head Surgeries/Procedures: Reports: None HEENT Surgical History: Reports: None Cardiovascular Surgical History: Reports: None Respiratory Surgical History: Reports: Tracheostomy GI Surgical History: Reports: Other (See Below) Other GI Surgeries/Procedures: PEG tube placement Male Surgical History: Reports: None Endocrine Surgical History: Reports: None Neurological Surgical History: Reports: None Musculoskeletal Surgical History: Reports: Arthroscopic Knee Oncologic Surgical History: Reports: None Dermatological Surgical History: Reports: None Social & Family History - Family History Family Medical History: No Pertinent Family History - Tobacco Use Tobacco Use Status *Q: Never Tobacco User - Caffeine Use Caffeine Use: Reports: Coffee - Recreational Drug Use Recreational Drug Use: No - Living Situation & Occupation Occupation: Retired ED ROS GENERAL - Review of Systems Review Of Systems: See Below ED EXAM, GENERAL - Physical Exam Exam: See Below Course - Vital Signs Last Recorded V/S: Last Vital Signs Temp 98.3 F 11/24/20 21:28 Pulse 96 11/25/20 01:00 Resp 24 H 11/25/20 01:00 BP 133/83 11/25/20 01:00 Pulse Ox 95 11/25/20 01:00 - Orders/Labs/Meds Orders: Active Orders 24 hr Category Date Time Status RT Aerosol Therapy [RC] ASDIRECTED Care 11/25/20 01:12 Active CULTURE BLOOD [BC] Stat Lab 11/25/20 01:05 Received CULTURE BLOOD [BC] Stat Lab 11/25/20 01:10 Received PROCALCITONIN [REF] Stat Lab 11/25/20 01:10 Received Sodium Chloride 0.9% [Saline Flush] Med 11/24/20 21:35 Active 10 ml FLUSH ASDIRECTED PRN Sodium Chloride 0.9% [Saline Flush] Med 11/25/20 00:52 Active 10 ml FLUSH ASDIRECTED PRN Sodium Chloride 0.9% [Saline Flush] Med 11/24/20 21:35 Active 2.5 ml FLUSH ASDIRECTED PRN Sodium Chloride 0.9% [Saline Flush] Med 11/25/20 00:52 Active 2.5 ml FLUSH ASDIRECTED PRN Blood Culture x2 Reflex Set [OM.PC] Stat Oth 11/25/20 00:52 Ordered Isolation [COMM] Routine Oth 11/25/20 00:52 Active Saline Lock Insert [OM.PC] Stat Oth 11/24/20 21:35 Ordered Saline Lock Insert [OM.PC] Stat Oth 11/25/20 00:52 Ordered Medication Orders Sodium Chloride (Sodium Chloride 0.9% 10 Ml Syringe) 10 ml FLUSH ASDIRECTED PRN PRN Reason: Keep Vein Open Sodium Chloride (Sodium Chloride 0.9% 2.5 Ml Syringe) 2.5 ml FLUSH ASDIRECTED PRN PRN Reason: Keep Vein Open Sodium Chloride (Sodium Chloride 0.9% 10 Ml Syringe) 10 ml FLUSH ASDIRECTED PRN PRN Reason: Keep Vein Open Sodium Chloride (Sodium Chloride 0.9% 2.5 Ml Syringe) 2.5 ml FLUSH ASDIRECTED PRN PRN Reason: Keep Vein Open Labs: Laboratory Tests 11/24/20 11/24/20 11/24/20 Range/Units 21:20 21:20 21:45 WBC 12.07 H (4.0-11.0) K/uL RBC 4.42 L (4.50-5.90) M/uL Hgb 14.4 (13.0-17.0) g/dL Hct 40.8 (38.0-50.0) % MCV 92.3 (80.0-98.0) fL MCH 32.6 H (27.0-32.0) pg MCHC 35.3 (31.0-37.0) g/dL RDW Std Deviation 44.2 (28.0-62.0) fl RDW Coeff of Bria 13 (11.0-15.0) % Plt Count 391 (150-400) K/uL MPV 9.40 (7.40-12.00) fL Neut % (Auto) 81.1 H (48.0-80.0) % Lymph % (Auto) 8.5 L (16.0-40.0) % [place] % (Auto) 10.3 (0.0-15.0) % Eos % (Auto) 0.0 (0.0-7.0) % Baso % (Auto) 0.1 (0.0-1.5) % Neut # (Auto) 9.8 H (1.4-5.7) K/uL Lymph # (Auto) 1.0 (0.6-2.4) K/uL [place] # (Auto) 1.2 H (0.0-0.8) K/uL Eos # (Auto) 0.0 (0.0-0.7) K/uL Baso # (Auto) 0.0 (0.0-0.1) K/uL Sodium 136 (136-148) mmol/L Potassium 4.2 (3.5-5.1) mmol/L Chloride 97 L (98-107) mmol/L Carbon Dioxide 26.3 (21.0-32.0) mmol/L BUN 19 H (7.0-18.0) mg/dL Creatinine 0.9 (0.8-1.3) mg/dL Est Cr Clr Drug Dosing 77.46 mL/min Estimated GFR (MDRD) > 60.0 ml/min Glucose 131 H (74-106) mg/dL Lactic Acid (0.4-2.0) mmol/L Calcium 9.0 (8.5-10.1) mg/dL Total Bilirubin 0.8 (0.2-1.0) mg/dL AST 21 (15-37) IU/L ALT 28 (14-63) IU/L Alkaline Phosphatase 88 (46-116) U/L Troponin I < 0.050 (0.000-0.056) ng/mL Total Protein 7.5 (6.4-8.2) g/dL Albumin 2.4 L (3.4-5.0) g/dL Globulin 5.1 H (2.6-4.0) g/dL Albumin/Globulin Ratio 0.5 L (0.9-1.6) SARS-CoV-2 RNA (JARROD) NEGATIVE (NEGATIVE) 11/25/20 Range/Units 01:05 WBC (4.0-11.0) K/uL RBC (4.50-5.90) M/uL Hgb (13.0-17.0) g/dL Hct (38.0-50.0) % MCV (80.0-98.0) fL MCH (27.0-32.0) pg MCHC (31.0-37.0) g/dL RDW Std Deviation (28.0-62.0) fl RDW Coeff of Bria (11.0-15.0) % Plt Count (150-400) K/uL MPV (7.40-12.00) fL Neut % (Auto) (48.0-80.0) % Lymph % (Auto) (16.0-40.0) % [place] % (Auto) (0.0-15.0) % Eos % (Auto) (0.0-7.0) % Baso % (Auto) (0.0-1.5) % Neut # (Auto) (1.4-5.7) K/uL Lymph # (Auto) (0.6-2.4) K/uL [place] # (Auto) (0.0-0.8) K/uL Eos # (Auto) (0.0-0.7) K/uL Baso # (Auto) (0.0-0.1) K/uL Sodium (136-148) mmol/L Potassium (3.5-5.1) mmol/L Chloride (98-107) mmol/L Carbon Dioxide (21.0-32.0) mmol/L BUN (7.0-18.0) mg/dL Creatinine (0.8-1.3) mg/dL Est Cr Clr Drug Dosing mL/min Estimated GFR (MDRD) ml/min Glucose (74-106) mg/dL Lactic Acid 0.9 (0.4-2.0) mmol/L Calcium (8.5-10.1) mg/dL Total Bilirubin (0.2-1.0) mg/dL AST (15-37) IU/L ALT (14-63) IU/L Alkaline Phosphatase (46-116) U/L Troponin I (0.000-0.056) ng/mL Total Protein (6.4-8.2) g/dL Albumin (3.4-5.0) g/dL Globulin (2.6-4.0) g/dL Albumin/Globulin Ratio (0.9-1.6) SARS-CoV-2 RNA (JARROD) (NEGATIVE) Meds: Medications Generic Name Dose Route Start Last Admin Trade Name Freq PRN Reason Stop Dose Admin Sodium Chloride 10 ml 11/24/20 21:35 Sodium Chloride 0.9% 10 Ml Syringe FLUSH ASDIRECTED PRN Keep Vein Open Sodium Chloride 2.5 ml 11/24/20 21:35 Sodium Chloride 0.9% 2.5 Ml Syringe FLUSH ASDIRECTED PRN Keep Vein Open Sodium Chloride 10 ml 11/25/20 00:52 Sodium Chloride 0.9% 10 Ml Syringe FLUSH ASDIRECTED PRN Keep Vein Open Sodium Chloride 2.5 ml 11/25/20 00:52 Sodium Chloride 0.9% 2.5 Ml Syringe FLUSH ASDIRECTED PRN Keep Vein Open Discontinued Medications Generic Name Dose Route Start Last Admin Trade Name Freq PRN Reason Stop Dose Admin Acetaminophen 1,000 mg 11/24/20 22:20 11/24/20 22:22 Acetaminophen 500 Mg Tab PO 11/24/20 22:21 Not Given ONETIME ONE Albuterol/Ipratropium 9 ml 11/25/20 01:11 11/25/20 01:13 Albuterol/Ipratropium 3.0-0.5 Mg/3 Ml Neb Soln NEB 11/25/20 01:12 9 ml ONETIME ONE Administration Albuterol/Ipratropium Confirm 11/25/20 01:12 11/25/20 01:21 Albuterol/Ipratropium 3.0-0.5 Mg/3 Ml Neb Soln Administered 11/25/20 01:13 Not Given Dose 9 ml .ROUTE .STK-MED ONE Sodium Chloride 1,000 mls @ 999 mls/hr 11/25/20 00:52 11/25/20 01:13 Normal Saline IV 11/25/20 01:52 999 mls/hr .Bolus ONE Administration Piperacillin Sod/Tazobactam 100 mls @ 100 mls/hr 11/25/20 00:52 11/25/20 01:13 Sod 4.5 gm/ Sodium Chloride IV 11/25/20 01:51 100 mls/hr ONETIME ONE Administration Methylprednisolone Sodium Succinate 125 mg 11/25/20 00:52 11/25/20 01:13 Methylprednisolone Sodium Succinate 125 Mg/2 Ml Sdv IVPUSH 11/25/20 00:53 125 mg ONETIME ONE Administration Morphine Sulfate 2 mg 11/24/20 22:22 11/24/20 22:39 Morphine 2 Mg/Ml Syringe IVPUSH 11/24/20 22:23 2 mg ONETIME ONE Administration Departure - Departure Time of Disposition: 02:38 Disposition: DC/Tfer to Acute Hospital 02 Condition: Fair Clinical Impression: COPD exacerbation, Respiratory failure with hypoxia, Right middle lobe pneumonia - Discharge Information Referrals: PCP,None [Primary Care Provider] - Forms: ED Department Discharge Sepsis Event Note (ED) - Evaluation Sepsis Screening Result: No Definite Risk - Focused Exam Vital Signs: Vital Signs Temp Pulse Resp BP Pulse Ox 11/25/20 01:00 96 24 H 133/83 95 11/24/20 22:40 78 24 H 124/75 96 11/24/20 21:28 98.3 F 92 28 H 119/69 88 L - My Orders Last 24 Hours: My Active Orders 11/24/20 21:35 Sodium Chloride 0.9% [Saline Flush] 10 ml FLUSH ASDIRECTED PRN Sodium Chloride 0.9% [Saline Flush] 2.5 ml FLUSH ASDIRECTED PRN Saline Lock Insert [OM.PC] Stat 11/25/20 00:52 Sodium Chloride 0.9% [Saline Flush] 10 ml FLUSH ASDIRECTED PRN Sodium Chloride 0.9% [Saline Flush] 2.5 ml FLUSH ASDIRECTED PRN Blood Culture x2 Reflex Set [OM.PC] Stat Isolation [COMM] Routine Saline Lock Insert [OM.PC] Stat 11/25/20 01:05 CULTURE BLOOD [BC] Stat 11/25/20 01:10 CULTURE BLOOD [BC] Stat PROCALCITONIN [REF] Stat 11/25/20 01:12 RT Aerosol Therapy [RC] ASDIRECTED - Assessment/Plan Last 24 Hours: My Active Orders 11/24/20 21:35 Sodium Chloride 0.9% [Saline Flush] 10 ml FLUSH ASDIRECTED PRN Sodium Chloride 0.9% [Saline Flush] 2.5 ml FLUSH ASDIRECTED PRN Saline Lock Insert [OM.PC] Stat 11/25/20 00:52 Sodium Chloride 0.9% [Saline Flush] 10 ml FLUSH ASDIRECTED PRN Sodium Chloride 0.9% [Saline Flush] 2.5 ml FLUSH ASDIRECTED PRN Blood Culture x2 Reflex Set [OM.PC] Stat Isolation [COMM] Routine Saline Lock Insert [OM.PC] Stat 11/25/20 01:05 CULTURE BLOOD [BC] Stat 11/25/20 01:10 CULTURE BLOOD [BC] Stat PROCALCITONIN [REF] Stat 11/25/20 01:12 RT Aerosol Therapy [RC] ASDIRECTED
== END 2020-11-25 03:30 ==
LOC: MW.ED 21:25
DX: J18.9 Pneumonia, unspecified organism (principal); J44.1 Chronic obstructive pulmonary disease with (acute) exacerbation; J96.91 Respiratory failure, unspecified with hypoxia; I12.9 Hypertensive chronic kidney disease with stage 1 through stage 4 chronic kidney disease, or unspecified chronic kidney disease; N18.9 Chronic kidney disease, unspecified; G40.909 Epilepsy, unspecified, not intractable, without status epilepticus; Z79.899 Other long term (current) drug therapy; Z20.822 Contact with and (suspected) exposure to COVID-19
CPT/HCPCS: 36415; 71045; 71045-26; 80053; 83605; 84145; 84484; 85025; 87040; 87804; 93005; 96365; 96375; 99285-25; J2270; J2543; J2930; J7030; J7620-GY; U0002

== ENCOUNTER 2021-01-01 10:57 | Emergency (ER) | payer MEDICARE, MEDICAID ==
--- NOTE | 2021-01-01 11:21 | PCM.EKG ---
#1 Interpretation EKG Date: 01/01/21 Time: 12:01 Rhythm: NSR Rate (Beats/Min): 117 [place]: Normal P-Wave: Present QRS: Normal ST-T: Normal QT: Normal Comparison: No Change (11/24/20) EKG Interpretation Comments: Sinus Tachycardia
[2021-01-01 11:54] LABS: BLOOD UREA NITROGEN,BUN 4 mg/dL (7.0-18.0); CARBON DIOXIDE,CO2 25.4 mmol/L (21.0-32.0); CHLORIDE,CL 96 mmol/L (98-107); GLUCOSE RANDOM 134 mg/dL (74-106); POTASSIUM,K 3.7 mmol/L (3.5-5.1); SODIUM,NA 133 mmol/L (136-148)
[2021-01-01 12:02] LABS: CORONAVIRUS COVID-19 NAA NEGATIVE (NEGATIVE); INFLUENZA A NAA NEGATIVE (NEGATIVE); INFLUENZA B NAA NEGATIVE (NEGATIVE)
[2021-01-01] MEDS ORDERED: Iopamidol 755 MG/ML 500 ML Multipack Bottle IVPUSH STA (13:03)
--- NOTE | 2021-01-01 13:22 | EDM.PDOC ---
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 The patient states that for the last couple of days he has been having increased shortness of breath and cough which is nonproductive. He states that he feels like it is hard to breathe. He denies any increased secretions from the tracheostomy site or the trach itself. He denies any fevers or chills. He states that he does have a nebulizer at home for his COPD but he has not used it and he states that he does occasionally use a humidifier at home. He states that it feels like it is hard for him to clear his throat. He denies any chest pain, fever or chills. He denies any lower extremity edema, prior history of DVT or PE. REVIEW OF SYSTEMS: Constitutional: Denies fever, chills. Eyes: Denies eye pain Ears, Nose, Mouth, & Throat: Denies earache Cardiovascular: Denies chest pain Respiratory: Positive for shortness of breath and cough gastrointestinal: Denies Nausea, vomiting, diarrhea, hematochezia. Genitourinary: Denies hematuria Skin:Denies a rash MSK: Denies joint pain Neurological: Denies blurred vision Psychiatric: Denies depression PAST MEDICAL HISTORY: As per history of present illness and as reviewed below otherwise noncontributory. SURGICAL HISTORY: As per history of present illness and as reviewed below otherwise noncontributory. SOCIAL HISTORY: As per history of present illness and as reviewed below otherwise noncontributory. FAMILY HISTORY: As per history of present illness and as reviewed below otherwise noncontributory. EXAMINATION OF ORGAN SYSTEMS/BODY AREAS: Constitutional: Blood pressure is 148/87, heart rate 117, respiratory rate 25 with an oxygen saturation of 98% on room air. Temperature 37.1 General: Elderly gentleman who does not appear to be in acute distress Psychiatric: Appropriate mood and affect. Eyes: No scleral icterus or conjunctival erythema ENMT: Moist mucous membranes. No pharyngeal erythema tracheostomy site appears well-healed without any surrounding erythema or drainage. No abnormality of the tracheostomy site at all. Cardiovascular: Tachycardic but regular no gallops, murmurs, or rubs. Bilateral upper extremity pulses symmetric and intact. No peripheral edema. No JVD. Respiratory: Lungs clear to auscultation bilaterally. No wheezes, rales, or rhonchi. No wheezing. Gastrointestinal: Soft, non-tender, non-distended. Normoactive bowel sounds G- tube without any surrounding erythema or purulent drainage. Appears to be well- healed Genitourinary: No suprapubic tenderness Musculoskeletal: Normal range of motion. Skin: No lesions or abrasions. 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 At this time given the patient's laryngeal cancer will obtain a CT angiogram of the chest as there is high concern for possible pulmonary embolism. We will also obtain a cardiac work-up and a chest x-ray. The patient does not have any wheezing on examination therefore no duo nebs will be provided. In addition the patient's tracheostomy site appears well and he has no increased production of sputum therefore I do believe that tracheitis is less likely. Cardiac monitoring at this time did reveal sinus tachycardia and pulse oximetry with good waveform was 98% on room air. EKG was obtained which did not reveal any acute signs of ischemia. DDx: Pulmonary embolism, pneumonia, ACS, tracheitis Laboratory: CBC is unremarkable. BMP reveals hyponatremia 133, hypochloremia at 96 otherwise unremarkable. Troponin is negative. Magnesium is normal. Covid and influenza are negative. The radiological images were viewed by myself along with reading the report from the radiologist. Chest x-ray does not reveal any acute cardiopulmonary process. The radiological images were viewed by myself along with reading the report from the radiologist. CT angiogram of the chest does not reveal any evidence of acute pulmonary embolism. Mild emphysema. Otherwise no acute cardiopulmonary process. After labs and imaging I did discuss the results with the patient. At this time I do not believe the patient requires any further work-up. I did discuss the use of a humidifier at home and humidified air given the trach. The patient did report improvement after treatment. We will treat the patient as a COPD exacerbation. He is to take azithromycin and prednisone as prescribed. I did have respiratory therapy come bedside and evaluate the trach and teach the p atient proper care. At this time I did discuss strict return precautions with the patient. He was amenable to discharge and had no further questions. DISPOSITION: The patient was discharged home in stable condition. The patient will follow up with primary care physician in 3 to 5 days CONDITION: Good PROCEDURES: Cardiac monitoring interpretation, pulse oximetry interpretation FINAL IMPRESSION(S)/DIAGNOSES: 1. Acute dyspnea likely secondary to COPD exacerbation Critical Care Procedure Note Authorized and performed by: Adrian Youssef M.D. Critical Care Time: 45 minutes Due to a high probability of clinically significant, life threatening deterioration, the patient required my highest level of preparedness to intervene emergently and I personally spent this critical care time directly and personally managing the patient. This critical care time included obtaining a history, examining the patient, pulse oximetry; ordering and review of studies; arranging urgent treatment with development of a management plan; evaluation of a patients reponse to treatment; frequent assessment; and discussions with other providers. This critical care time was performed to assess and manage the high probability of imminent, life threatening deterioration that could result in multiorgan failure. It was exclusive of separate billable procedures and treating other patients. Please see MDM section and rest of the note for further information on patient assessment and treatment. Please see MDM section and rest of the note for further information on patient assessment and treatment. Adrian Youssef M.D. - Related Data Allergies Allergy/AdvReac Type Severity Reaction Status Date / Time No Known Allergies Allergy Verified 01/01/21 11:10 Home Meds: Home Meds Olmesartan Medoxomil 40 mg PO DAILY 07/01/19 [History] amLODIPine [Norvasc] 5 mg PO WITHDINNER 07/01/19 [History] Folic Acid 1 mg PO DAILY #30 tablet 07/05/19 [Rx] Thiamine [Vitamin B-1] 100 mg PO DAILY #30 tablet 07/05/19 [Rx] Albuterol Sulfate [Albuterol Sulfate Hfa] 1 - 2 puff IH Q4H PRN #1 unit 07/16/19 [Rx] predniSONE [Prednisone] 60 mg PO DAILY 4 Days #12 tablet 07/16/19 [Rx] Acetaminophen [Tylenol Extra Strength] 500 mg PO Q6H PRN #15 tab 07/19/19 [Rx] Azithromycin [Zithromax] 250 mg PO DAILY #4 tab 01/01/21 [Rx] predniSONE [Prednisone] 50 mg PO DAILY #5 tablet 01/01/21 [Rx] Past Medical History HEENT History: Reports: None Cardiovascular History: Reports: Hypertension Respiratory History: Reports: COPD Gastrointestinal History: Reports: None Genitourinary History: Reports: Acute Renal Failure, Chronic Renal Insuffiency Musculoskeletal History: Reports: None Neurological History: Reports: None Psychiatric History: Reports: Addiction Other Psychiatric History: pt states "I used to love marijuana, that maybe 25 years ago" Endocrine/Metabolic History: Reports: None Hematologic History: Reports: None Immunologic History: Reports: None Oncologic (Cancer) History: Reports: Other (See Below) Other Oncologic History: throat CA Dermatologic History: Reports: None - Infectious Disease History Infectious Disease History: Reports: Chicken Pox - Past Surgical History Head Surgeries/Procedures: Reports: None HEENT Surgical History: Reports: None Cardiovascular Surgical History: Reports: None Respiratory Surgical History: Reports: Tracheostomy GI Surgical History: Reports: Other (See Below) Other GI Surgeries/Procedures: PEG tube placement Male Surgical History: Reports: None Endocrine Surgical History: Reports: None Neurological Surgical History: Reports: None Musculoskeletal Surgical History: Reports: Arthroscopic Knee Oncologic Surgical History: Reports: None Dermatological Surgical History: Reports: None Social & Family History - Family History Family Medical History: No Pertinent Family History - Caffeine Use Caffeine Use: Reports: Coffee - Living Situation & Occupation Occupation: Retired ED ROS GENERAL - Review of Systems Review Of Systems: See Below ED EXAM, GENERAL - Physical Exam Exam: See Below Course - Vital Signs Last Recorded V/S: Last Vital Signs Temp 37.1 C 01/01/21 11:11 Pulse 85 01/01/21 15:57 Resp 20 01/01/21 15:57 BP 132/89 01/01/21 15:57 Pulse Ox 97 01/01/21 15:57 - Orders/Labs/Meds Labs: Laboratory Tests 01/01/21 01/01/21 01/01/21 Range/Units 11:12 11:12 11:12 WBC 8.02 (4.0-11.0) K/uL RBC 5.03 (4.50-5.90) M/uL Hgb 16.2 (13.0-17.0) g/dL Hct 45.6 (38.0-50.0) % MCV 90.7 (80.0-98.0) fL MCH 32.2 H (27.0-32.0) pg MCHC 35.5 (31.0-37.0) g/dL RDW Std Deviation 45.2 (28.0-62.0) fl RDW Coeff of Bria 14 (11.0-15.0) % Plt Count 354 (150-400) K/uL MPV 8.70 (7.40-12.00) fL Neut % (Auto) 79.6 (48.0-80.0) % Lymph % (Auto) 13.1 L (16.0-40.0) % [place] % (Auto) 7.2 (0.0-15.0) % Eos % (Auto) 0.0 (0.0-7.0) % Baso % (Auto) 0.1 (0.0-1.5) % Neut # (Auto) 6.4 H (1.4-5.7) K/uL Lymph # (Auto) 1.1 (0.6-2.4) K/uL [place] # (Auto) 0.6 (0.0-0.8) K/uL Eos # (Auto) 0.0 (0.0-0.7) K/uL Baso # (Auto) 0.0 (0.0-0.1) K/uL Nucleated RBC % 0.0 /100WBC Nucleated RBCs # 0 K/uL Sodium 133 L (136-148) mmol/L Potassium 3.7 (3.5-5.1) mmol/L Chloride 96 L (98-107) mmol/L Carbon Dioxide 25.4 (21.0-32.0) mmol/L BUN 4 L (7.0-18.0) mg/dL Creatinine 0.7 L (0.8-1.3) mg/dL Est Cr Clr Drug Dosing 101.60 mL/min Estimated GFR (MDRD) > 60.0 ml/min Glucose 134 H (74-106) mg/dL Calcium 8.9 (8.5-10.1) mg/dL Magnesium 2.0 (1.8-2.4) mg/dL Troponin I < 0.050 (0.000-0.056) ng/mL Influenza Type A RNA NEGATIVE (NEGATIVE) Influenza Type B RNA NEGATIVE (NEGATIVE) SARS-CoV-2 RNA (JARROD) NEGATIVE (NEGATIVE) Meds: Medications Discontinued Medications Generic Name Dose Route Start Last Admin Trade Name Freq PRN Reason Stop Dose Admin Albuterol/Ipratropium 3 ml 01/01/21 13:57 01/01/21 14:20 Albuterol/Ipratropium 3.0-0.5 Mg/3 Ml Neb Soln NEB 01/01/21 13:58 3 ml ONETIME ONE Administration Azithromycin 500 mg 01/01/21 13:57 01/01/21 14:20 Azithromycin 250 Mg Tab PO 01/01/21 13:58 500 mg ONETIME STA Administration Lactated Ringer's 1,000 mls @ 999 mls/hr 01/01/21 14:00 01/01/21 15:20 Ringers, Lactated IV 999 mls/hr ASDIRECTED ENRIQUE Administration Iopamidol 100 ml 01/01/21 13:03 01/01/21 13:04 Iopamidol 755 Mg/Ml 500 Ml Multipack Bottle IVPUSH 01/01/21 13:04 100 ml ONETIME STA Administration Prednisone 60 mg 01/01/21 13:57 01/01/21 14:20 Prednisone 20 Mg Tab PO 01/01/21 13:58 60 mg ONETIME ONE Administration Departure - Departure Time of Disposition: 15:31 Disposition: Home, Self-Care 01 Condition: Fair Clinical Impression: COPD (chronic obstructive pulmonary disease) - Discharge Information *PRESCRIPTION DRUG MONITORING PROGRAM REVIEWED*: No *COPY OF PRESCRIPTION DRUG MONITORING REPORT IN PATIENT DOMINGO: No Prescriptions: predniSONE [Prednisone] 50 mg PO DAILY #5 tablet Azithromycin [Zithromax] 250 mg PO DAILY #4 tab Instructions: Chronic Obstructive Pulmonary Disease Exacerbation, [id number], How to Clean a Tracheostomy Tube, Adult, [id number], Tracheostomy Tube Safety and Care, Adult Referrals: Chalo Jimenez MD [Primary Care Provider] - Forms: ED Department Discharge Additional Instructions: Your evaluated today on an emergent basis. At this time we did provide you with 1 DuoNeb treatment and some steroids and your oxygen did stay normal in the 98% range. All of your work-up was normal including the CT of your chest which did not reveal any evidence of any pneumonia or evidence of a clot in your lung. Your tracheostomy site appears well. As discussed I recommend that you use the humidified air that is given to you for the trach as it can become clogged. We did clean this out for you in the emergency department. I recommend that you take azithromycin daily starting tomorrow for the next 4 days and take prednisone daily until it is complete. If you have any worsening symptoms I would like you to return to the emergency department. Otherwise follow-up with your primary care physician in 3 to 5 days [facility] - [facility] [address] [place] [id number] [id number] The patient is informed of any results of their evaluation and diagnostic workup and all questions are answered. They are given discharge instructions and return precautions. The patient is stable for discharge. The patient states they understand and agree with the plan and that they will return if their symptoms get worse or if they have any new concerns. The following information is given to patients seen in the emergency department who are being discharged to home. This information is to outline your options for follow-up care. We provide all patients seen in our emergency department with a follow-up referral. The need for follow-up, as well as the timing and circumstances, are variable depending upon the specifics of your emergency department visit. If you don't have a primary care physician on staff, we will provide you with a referral. We always advise you to contact your personal physician following an emergency department visit to inform them of the circumstance of the visit and for follow-up with them and/or the need for any referrals to a consulting specialist. The emergency department will also refer you to a specialist when appropriate. This referral assures that you have the opportunity for follow-up care with a specialist. All of these measure are taken in an effort to provide you with optimal care, which includes your follow-up. Under all circumstances we always encourage you to contact your private physician who remains a resource for coordinating your care. When calling for follow-up care, please make the office aware that this follow-up is from your recent emergency room visit. If for any reason you are refused follow-up, please contact the [facility] Emergency Department at and asked to speak to the emergency department charge nurse. Sepsis Event Note (ED) - Evaluation Sepsis Screening Result: No Definite Risk
--- NOTE | 2021-01-01 13:46 | CT ---
Indication: Shortness of breath. Evaluate for PE. Technique: TechniqueMultiple contiguous axial images were obtained from the thoracic inlet through the upper abdomen after the intravenous administration 100 cc Isovue 370. This exam is tailored for the evaluation of pulmonary arteries. Please note that all CT scans at this facility use dose modulation, iterative reconstruction, and/or weight-based dosing when appropriate to reduce radiation dose to as low as reasonably achievable. Comparison: Chest x-ray dated November 24, 2020. Findings: A tracheostomy tube is identified. Aorta is normal in caliber. There is no evidence of aortic dissection. The heart is normal in size. No pericardial effusion is identified. No pulmonary embolism is identified. The visualized portions of the liver, pancreas, adrenals, kidneys, and spleen are normal. No intrahepatic biliary ductal dilatation is identified. No hydronephrosis is identified. Degenerative changes of the spine are identified. No lytic or blastic lesions are identified. Mild emphysematous changes of the lungs are identified. No infiltrate, pleural effusion, or pneumothorax is identified. No pulmonary embolism is identified. Scar is identified within both apices as well as the lingula. Impression: No evidence of aortic dissection or pulmonary embolism. Mild emphysema Please note that all CT scans at this facility use dose modulation, iterative reconstruction, and/or weight-based dosing when appropriate to reduce radiation dose to as low as reasonably achievable. Dictated by Rae Rojas MD @ 01/01/2021 1:45:19 PM (Electronically Signed)
[2021-01-01] MEDS ORDERED: Azithromycin 250 MG Tab PO STA (13:57)
[2021-01-01] MEDS ORDERED: predniSONE 20 MG Tab PO ONE (13:57)
[2021-01-01] MEDS ORDERED: Albuterol/Ipratropium 3.0-0.5 MG/3 ML Neb Soln NEB ONE (13:57)
[2021-01-01] MEDS ORDERED: Lactated Ringers 1,000 ML IV SCH (14:00)
--- NOTE | 2021-01-01 14:59 | CR ---
Indication: Shortness of breath. Technique: Chest 1 view. Comparison: 11/24/2020. Findings/Impression: Cardiovascular and mediastinum: Tracheostomy tube unchanged. Heart size and pulmonary vasculature remain normal. Lungs and pleural space: Minimal right basilar scarring or atelectasis. Remainder of the lungs and pleural spaces are clear. No pneumothorax. No other specific finding to explain shortness of breath. Bones and soft tissues: No acute findings. Dictated by Carlyle Walton MD @ 01/01/2021 2:57:25 PM (Electronically Signed)
== END 2021-01-01 15:57 | disposition home or self-care (01) ==
LOC: MW.ED 10:57
DX: J44.9 Chronic obstructive pulmonary disease, unspecified (principal); I12.9 Hypertensive chronic kidney disease with stage 1 through stage 4 chronic kidney disease, or unspecified chronic kidney disease; N18.9 Chronic kidney disease, unspecified; Z79.899 Other long term (current) drug therapy; Z20.822 Contact with and (suspected) exposure to COVID-19
CPT/HCPCS: 0240U; 71045; 71275; 80048; 83735; 84484; 85025; 93005; 99291; A9270; J7120; Q9967; J7620-GY

== ENCOUNTER 2021-02-07 10:30 | Emergency (ER) | payer MEDICARE, MEDICAID ==
[2021-02-07] MEDS ORDERED: Albuterol/Ipratropium 3.0-0.5 MG/3 ML Neb Soln NEB ONE ×2 (10:48→13:00)
[2021-02-07] MEDS ORDERED: methylPREDNISolone Sodium Succinate 125 MG/2 ML SDV IVPUSH ONE (10:48)
[2021-02-07] MEDS ORDERED: Sodium Chloride 0.9% 2.5 ML Syringe FLUSH PRN (10:49)
[2021-02-07] MEDS ORDERED: Sodium Chloride 0.9% 10 ML Syringe FLUSH PRN (10:49)
--- NOTE | 2021-02-07 11:07 | PCM.EKG ---
#1 Interpretation Time: 10:58 EKG Interpretation Comments: 91, normal sinus rhythm, nonspecific ST/T findings
--- NOTE | 2021-02-07 11:42 | EDM.PDOC ---
ED HPI GENERAL MEDICAL PROBLEM - General Chief Complaint: Respiratory Problem Stated Complaint: BLOCKED AIRWAY Time Seen by Provider: 02/07/21 10:42 Source of Information: Reports: Patient History Limitations: Reports: No Limitations - History of Present Illness INITIAL COMMENTS - FREE TEXT/NARRATIVE: HISTORY AND PHYSICAL: History of present illness: Patient is a 70-year-old male, with a history of COPD, throat cancer status post tracheostomy, who presents emergency room today with concern of worsening shortness of breath over the past several days. Patient states he has been feeling like he has a mucous plug stuck in his tracheostomy but states that he feels like he cannot cough it up. Patient states he has had an increased cough over the past several days but states he feels like he is unable to get the mucus out. Patient states that he has an albuterol inhaler but has not been using this much. Patient denies fever, chills, chest pain. Denies headache, neck stiff ness, change in vision, syncope, or near syncope. Denies nausea, vomiting, abdominal pain, diarrhea, constipation, or dysuria. Has not noted any blood in urine or stool. Patient has been eating and drinking appropriately. Review of systems: As per history of present illness and below otherwise all systems reviewed and negative. Past medical history: As per history of present illness and as reviewed below otherwise noncontributory. Surgical history: As per history of present illness and as reviewed below otherwise noncontributory. Social history: See social history for further information Family history: As per history of present illness and as reviewed below otherwise noncontributory. Physical exam: General: Patient is alert, oriented, and in no acute distress. Patient laying on exam table, patient is tachycardic 112, tachypneic at 24, is 97% on room air. Tracheostomy is in place. HEENT: Atraumatic, normocephalic, pupils equal and reactive bilaterally, negative for conjunctival pallor or scleral icterus, mucous membranes moist, throat clear, neck supple, nontender, trachea midline. No drooling or trismus noted. No meningeal signs. No hot potato voice noted. Lungs: Cough on exam. Patient does have wheezing to auscultation throughout all lung ferrer, worse on the right base. Otherwise, breath sounds equal bilaterally, chest nontender. Patient speaking 3-4 words with breathlessness, no stridor, use of accessory muscle use with moderate respiratory distress. Heart: S1S2, regular rate and rhythm without overt murmur Abdomen: Soft, nondistended, nontender. Negative for masses or hepatosplenomegaly. Negative for costovertebral tenderness. Pelvis: Stable nontender. Genitourinary: Deferred. Rectal: Deferred. Skin: Intact, warm, dry. No lesions or rashes noted. Extremities: Atraumatic, negative for cords or calf pain. Neurovascular unremarkable. Neuro: Awake, alert, oriented. Cranial nerves II through XII unremarkable. Cerebellum unremarkable. Motor and sensory unremarkable throughout. Exam nonfocal. Medical Decision Making: Patient is a 70-year-old male with a history of COPD, prior throat cancer status post tracheostomy, who presents emergency room today with concern of worsening shortness of breath over the past several days. Upon arrival to the ED, patient is tachycardic 112, tachypneic at 24, is maintaining his oxygen at 97% on room air and tracheostomy is in place. Exam also notes that patient has diffuse wheezing to auscultation throughout all lung ferrer, but is worse in the right lower lung base. Respiratory therapy is at bedside who does deep suctioning with little mucus retrieval and evaluation of the tracheostomy without concern. Will also initiate continuous DuoNeb at this time given COPD history, provide a dose of Solu-Medrol, initiate IV access and obtain cardiac evaluation. See Dr. Holloway's dictation for specific EKG interpretation. Otherwise, normal sinus rhythm without STEMI. Following the DuoNeb's, patient is breathing slightly more comfortable and his tachypnea has improved to 24. He remains about 94 to 95% on room air and his heart rate has normalized to the nineties. However, given patient's cancer history with worsening SOB, will obtain Ang CT chest concern for PE. CBC mild derangements are unremarkable. CMP does show hyponatremia with sodium at 128, hypochloremia 94. Otherwise mild derangements of CMP are unremarkable. Troponin negative. Covid and influenza are negative. Venous blood gas pH is 7.36. Chest x-ray shows no acute findings. Angiography of the chest shows no evidence of pulmonary thromboembolism, CHF, or pneumothorax. Upon reevaluation of patient, his heart rate is started to increase again to the 105-1 tens. He continues to have increased work of breathing despite the DuoNeb's and steroids. We will also give antibiotics for presumed COPD exacerbation. Patient did have his tracheostomy placed by the ear nose and throat provider, Dr. Powell at [facility] in [place]. I did call and speak to Dr. Powell and thoroughly discussed patient's case. He would like patient transferred so that he can scope the tracheostomy and fully evaluate the tracheostomy. Dr. Powell, ENT accepting of transfer. At this time, there is no ambulance available for transfer with an unforseen amount of time at this time. Flight arranged. Voices understanding and is agreeable to plan of care. Denies any further questions or concerns at this time. Diagnostics: EKG, CBC, CMP, chest x-ray 1 view, troponin, angiography of the chest, Covid/influenza Therapeutics: DuoNeb x3, Solu-Medrol, deep suctioning, Rocephin, Azithromycin Impression: Moderate respiratory distress COPD exacerbation Tracheostomy in place Plan: Transfer to Dr. Powell, ENT, via flight at [facility] Definitive disposition and diagnosis as appropriate pending reevaluation and review of above. trach Pain Score (Numeric/FACES): 8 - Related Data Allergies Allergy/AdvReac Type Severity Reaction Status Date / Time No Known Allergies Allergy Verified 02/07/21 10:35 Home Meds: Home Meds Olmesartan Medoxomil 40 mg PO DAILY 07/01/19 [History] amLODIPine [Norvasc] 5 mg PO WITHDINNER 07/01/19 [History] Folic Acid 1 mg PO DAILY #30 tablet 07/05/19 [Rx] Thiamine [Vitamin B-1] 100 mg PO DAILY #30 tablet 07/05/19 [Rx] Albuterol Sulfate [Albuterol Sulfate Hfa] 1 - 2 puff IH Q4H PRN #1 unit 07/16/19 [Rx] Acetaminophen [Tylenol Extra Strength] 500 mg PO Q6H PRN #15 tab 07/19/19 [Rx] Past Medical History HEENT History: Reports: None Cardiovascular History: Reports: Hypertension Respiratory History: Reports: COPD Gastrointestinal History: Reports: None Genitourinary History: Reports: Acute Renal Failure, Chronic Renal Insuffiency Musculoskeletal History: Reports: None Neurological History: Reports: None Psychiatric History: Reports: Addiction Other Psychiatric History: pt states "I used to love marijuana, that maybe 25 years ago" Endocrine/Metabolic History: Reports: None Hematologic History: Reports: None Immunologic History: Reports: None Oncologic (Cancer) History: Reports: Other (See Below) Other Oncologic History: throat CA Dermatologic History: Reports: None - Infectious Disease History Infectious Disease History: Reports: Chicken Pox, Measles - Past Surgical History Head Surgeries/Procedures: Reports: None HEENT Surgical History: Reports: None Cardiovascular Surgical History: Reports: None Respiratory Surgical History: Reports: Tracheostomy GI Surgical History: Reports: Other (See Below) Other GI Surgeries/Procedures: PEG tube placement Male Surgical History: Reports: None Endocrine Surgical History: Reports: None Neurological Surgical History: Reports: None Musculoskeletal Surgical History: Reports: Arthroscopic Knee Oncologic Surgical History: Reports: None Dermatological Surgical History: Reports: None Social & Family History - Family History Family Medical History: No Pertinent Family History - Tobacco Use Tobacco Use Status *Q: Former Tobacco User Used Tobacco, but Quit: Yes Month/Year Tobacco Last Used: 2020 - Caffeine Use Caffeine Use: Reports: Coffee - Recreational Drug Use Recreational Drug Use: Yes Drug Use in Last 12 Months: No - Living Situation & Occupation Occupation: Retired ED ROS GENERAL - Review of Systems Review Of Systems: Comprehensive ROS is negative, except as noted in HPI. ED EXAM, GENERAL - Physical Exam Exam: See Below (see dictation) Course - Vital Signs Last Recorded V/S: Last Vital Signs Temp 97.9 F 02/07/21 10:36 Pulse 109 H 02/07/21 14:26 Resp 17 02/07/21 14:26 BP 128/77 02/07/21 14:26 Pulse Ox 96 02/07/21 14:26 - Orders/Labs/Meds Orders: Active Orders 24 hr Category Date Time Status Saline Lock Insert [OM.PC] Stat Oth 02/07/21 10:49 Ordered Labs: Laboratory Tests 02/07/21 02/07/21 02/07/21 Range/Units 11:20 11:20 11:20 WBC 9.93 (4.0-11.0) K/uL RBC 4.63 (4.50-5.90) M/uL Hgb 14.8 (13.0-17.0) g/dL Hct 42.3 (38.0-50.0) % MCV 91.4 (80.0-98.0) fL MCH 32.0 (27.0-32.0) pg MCHC 35.0 (31.0-37.0) g/dL RDW Std Deviation 45.3 (28.0-62.0) fl RDW Coeff of Bria 14 (11.0-15.0) % Plt Count 353 (150-400) K/uL MPV 8.90 (7.40-12.00) fL Neut % (Auto) 78.6 (48.0-80.0) % Lymph % (Auto) 12.2 L (16.0-40.0) % [place] % (Auto) 8.5 (0.0-15.0) % Eos % (Auto) 0.5 (0.0-7.0) % Baso % (Auto) 0.2 (0.0-1.5) % Neut # (Auto) 7.8 H (1.4-5.7) K/uL Lymph # (Auto) 1.2 (0.6-2.4) K/uL [place] # (Auto) 0.8 (0.0-0.8) K/uL Eos # (Auto) 0.1 (0.0-0.7) K/uL Baso # (Auto) 0.0 (0.0-0.1) K/uL Nucleated RBC % 0.0 /100WBC Nucleated RBCs # 0 K/uL VBG pH 7.36 (7.31-7.41) VBG pCO2 49 (41-51) mmHG VBG pO2 < 30 mmHG VBG HCO3 28 (23-28) mEq/L VBG Total CO2 25 (24-29) mmol/L VBG Base Excess 1.5 (-2.0-3.0) Sodium 128 L (136-148) mmol/L Potassium 4.5 (3.5-5.1) mmol/L Chloride 94 L (98-107) mmol/L Carbon Dioxide 25.9 (21.0-32.0) mmol/L BUN 4 L (7.0-18.0) mg/dL Creatinine 0.6 L (0.8-1.3) mg/dL Est Cr Clr Drug Dosing 119.98 mL/min Estimated GFR (MDRD) > 60.0 ml/min Glucose 112 H (74-106) mg/dL Calcium 9.4 (8.5-10.1) mg/dL Total Bilirubin 0.3 (0.2-1.0) mg/dL AST 13 L (15-37) IU/L ALT 17 (14-63) IU/L Alkaline Phosphatase 98 (46-116) U/L Troponin I < 0.050 (0.000-0.056) ng/mL Total Protein 7.3 (6.4-8.2) g/dL Albumin 3.5 (3.4-5.0) g/dL Globulin 3.8 (2.6-4.0) g/dL Albumin/Globulin Ratio 0.9 (0.9-1.6) Influenza Type A RNA (NEGATIVE) Influenza Type B RNA (NEGATIVE) SARS-CoV-2 RNA (JARROD) (NEGATIVE) 02/07/21 Range/Units 12:12 WBC (4.0-11.0) K/uL RBC (4.50-5.90) M/uL Hgb (13.0-17.0) g/dL Hct (38.0-50.0) % MCV (80.0-98.0) fL MCH (27.0-32.0) pg MCHC (31.0-37.0) g/dL RDW Std Deviation (28.0-62.0) fl RDW Coeff of Bria (11.0-15.0) % Plt Count (150-400) K/uL MPV (7.40-12.00) fL Neut % (Auto) (48.0-80.0) % Lymph % (Auto) (16.0-40.0) % [place] % (Auto) (0.0-15.0) % Eos % (Auto) (0.0-7.0) % Baso % (Auto) (0.0-1.5) % Neut # (Auto) (1.4-5.7) K/uL Lymph # (Auto) (0.6-2.4) K/uL [place] # (Auto) (0.0-0.8) K/uL Eos # (Auto) (0.0-0.7) K/uL Baso # (Auto) (0.0-0.1) K/uL Nucleated RBC % /100WBC Nucleated RBCs # K/uL VBG pH (7.31-7.41) VBG pCO2 (41-51) mmHG VBG pO2 mmHG VBG HCO3 (23-28) mEq/L VBG Total CO2 (24-29) mmol/L VBG Base Excess (-2.0-3.0) Sodium (136-148) mmol/L Potassium (3.5-5.1) mmol/L Chloride (98-107) mmol/L Carbon Dioxide (21.0-32.0) mmol/L BUN (7.0-18.0) mg/dL Creatinine (0.8-1.3) mg/dL Est Cr Clr Drug Dosing mL/min Estimated GFR (MDRD) ml/min Glucose (74-106) mg/dL Calcium (8.5-10.1) mg/dL Total Bilirubin (0.2-1.0) mg/dL AST (15-37) IU/L ALT (14-63) IU/L Alkaline Phosphatase (46-116) U/L Troponin I (0.000-0.056) ng/mL Total Protein (6.4-8.2) g/dL Albumin (3.4-5.0) g/dL Globulin (2.6-4.0) g/dL Albumin/Globulin Ratio (0.9-1.6) Influenza Type A RNA NEGATIVE (NEGATIVE) Influenza Type B RNA NEGATIVE (NEGATIVE) SARS-CoV-2 RNA (JARROD) NEGATIVE (NEGATIVE) Meds: Medications Discontinued Medications Generic Name Dose Route Start Last Admin Trade Name Freq PRN Reason Stop Dose Admin Albuterol/Ipratropium 9 ml 02/07/21 10:48 02/07/21 10:58 Albuterol/Ipratropium 3.0-0.5 Mg/3 Ml Neb Soln NEB 02/07/21 10:49 9 ml ONETIME ONE Administration Albuterol/Ipratropium 6 ml 02/07/21 13:00 02/07/21 13:11 Albuterol/Ipratropium 3.0-0.5 Mg/3 Ml Neb Soln NEB 02/07/21 13:01 6 ml ONETIME ONE Administration Ceftriaxone Sodium/Dextrose 1 50 mls @ 100 mls/hr 02/07/21 14:53 02/07/21 14:59 gm/ Premix IV 02/07/21 15:22 100 mls/hr ONETIME ONE Administration Azithromycin 500 mg/ Sodium 250 mls @ 250 mls/hr 02/07/21 15:00 Chloride IV ONETIME ENRIQUE Iopamidol 100 ml 02/07/21 12:47 02/07/21 13:16 Iopamidol 755 Mg/Ml 500 Ml Multipack Bottle IVPUSH 02/07/21 12:48 100 ml ONETIME STA Administration Methylprednisolone Sodium Succinate 125 mg 02/07/21 10:48 02/07/21 11:18 Methylprednisolone Sodium Succinate 125 Mg/2 Ml Sdv IVPUSH 02/07/21 10:49 125 mg ONETIME ONE Administration Sodium Chloride 10 ml 02/07/21 10:49 02/07/21 11:18 Sodium Chloride 0.9% 10 Ml Syringe FLUSH 10 ml ASDIRECTED PRN Administration Keep Vein Open Sodium Chloride 2.5 ml 02/07/21 10:49 02/07/21 11:18 Sodium Chloride 0.9% 2.5 Ml Syringe FLUSH 2.5 ml ASDIRECTED PRN Administration Keep Vein Open Departure - Departure Time of Disposition: 15:19 Disposition: DC/Tfer to [facility] 02 Clinical Impression: Respiratory distress, COPD exacerbation, Presence of tracheostomy - Discharge Information Referrals: Chalo Jimenez MD [Primary Care Provider] - Forms: ED Department Discharge Sepsis Event Note (ED) - Evaluation Sepsis Screening Result: No Definite Risk - Focused Exam Vital Signs: Vital Signs Temp Pulse Resp BP Pulse Ox 02/07/21 14:26 109 H 17 128/77 96 02/07/21 11:06 91 126/77 96 02/07/21 10:36 97.9 F 112 H 24 H 168/97 H 97 - My Orders Last 24 Hours: My Active Orders 02/07/21 10:49 Saline Lock Insert [OM.PC] Stat - Assessment/Plan Last 24 Hours: My Active Orders 02/07/21 10:49 Saline Lock Insert [OM.PC] Stat
--- NOTE | 2021-02-07 11:44 | CR ---
INDICATION: Dyspnea COMPARISON: January 01, 2021 TECHNIQUE: Portable AP upright chest radiography was performed FINDINGS: TUBES AND LINES: Tracheostomy apparatus normally located HEART AND MEDIASTINUM: The heart size is normal. The mediastinal contour appears normal for patient age. LUNGS AND PLEURAL SPACES: Hyperinflated but otherwise unremarkable appearing lungs without acute focal finding.The pleural spaces are unremarkable. OSSEOUS STRUCTURES: Age-appropriate appearance. No acute focal finding. IMPRESSION: Tracheostomy apparatus normally located. Hyperinflated but otherwise unremarkable appearing lungs without acute focal finding. Dictated by Jakob Hutchins MD @ 02/07/2021 11:43:51 AM (Electronically Signed)
[2021-02-07 12:19] LABS: BLOOD UREA NITROGEN,BUN 4 mg/dL (7.0-18.0); CARBON DIOXIDE,CO2 25.9 mmol/L (21.0-32.0); CHLORIDE,CL 94 mmol/L (98-107); GLUCOSE RANDOM 112 mg/dL (74-106); POTASSIUM,K 4.5 mmol/L (3.5-5.1); SODIUM,NA 128 mmol/L (136-148)
[2021-02-07] MEDS ORDERED: Iopamidol 755 MG/ML 500 ML Multipack Bottle IVPUSH STA (12:47)
[2021-02-07 12:56] LABS: CORONAVIRUS COVID-19 NAA NEGATIVE (NEGATIVE); INFLUENZA A NAA NEGATIVE (NEGATIVE); INFLUENZA B NAA NEGATIVE (NEGATIVE)
--- NOTE | 2021-02-07 13:45 | CT ---
Indication: Shortness of breath, tachycardia. Technique: A CT volumetric acquisition was performed of the thorax during bolus infusion 100 cc Isovue 370. Comparison: Chest CT dated 01/01/2021 Findings: The CT images demonstrate informed vascular enhancement within the pulmonary arteries. There are no suspicious filling defects which would indicate pulmonary thromboemboli. Atherosclerotic vascular calcifications are noted within the thoracic aorta and coronary arteries. Heart size appears normal. There is no evidence of vascular dissection or aneurysm. There is no evidence suspicious lymphadenopathy within the central mediastinum or either axilla. The tracheostomy tube remains in proper position. There is underlying emphysema. There is pleural and parenchymal scarring within the inferior lingula. There are no suspicious nodules, masses or infiltrates. There is no evidence of pericardial fluid or pleural fluid. Impression: No evidence of pulmonary thromboembolism, CHF or pneumothorax. Please note that all CT scans at this facility use dose modulation, iterative reconstruction, and/or weight-based dosing when appropriate to reduce radiation dose to as low as reasonably achievable. Dictated by Black Yadav MD @ 02/07/2021 1:43:52 PM (Electronically Signed)
[2021-02-07] MEDS ORDERED: cefTRIAXone 1 GM in Premix Bag 1 BAG IV ONE (14:53)
[2021-02-07] MEDS ORDERED: Azithromycin 500 MG in Sodium Chloride 0.9% 250 ML IV SCH (15:00)
== END 2021-02-07 16:13 ==
LOC: MW.ED 10:30
DX: J44.1 Chronic obstructive pulmonary disease with (acute) exacerbation (principal); R06.03 Acute respiratory distress; I12.9 Hypertensive chronic kidney disease with stage 1 through stage 4 chronic kidney disease, or unspecified chronic kidney disease; N18.9 Chronic kidney disease, unspecified; Z87.891 Personal history of nicotine dependence; Z20.822 Contact with and (suspected) exposure to COVID-19; Z93.0 Tracheostomy status
CPT/HCPCS: 0240U; 36415; 71045; 71275; 80053; 82803; 84484; 85025; 93005; 94640; 96365; 96375; 99285; J0696; J2930; Q9967; J7620-GY

== ENCOUNTER 2021-03-19 12:29 | Emergency (ER) | payer MEDICARE, MEDICAID ==
[2021-03-19] MEDS ORDERED: Ondansetron 4 MG/2 ML SDV IVPUSH ONE (12:36)
[2021-03-19] MEDS ORDERED: Sodium Chloride 0.9% 10 ML Syringe FLUSH PRN (12:36)
[2021-03-19] MEDS ORDERED: Morphine 4 MG/ML VIAL IVPUSH ONE (12:36)
[2021-03-19] MEDS ORDERED: Sodium Chloride 0.9% 1,000 ML IV ONE (12:36)
[2021-03-19] MEDS ORDERED: Sodium Chloride 0.9% 2.5 ML Syringe FLUSH PRN (12:36)
[2021-03-19 13:30] LABS: BLOOD UREA NITROGEN,BUN 6 mg/dL (7.0-18.0); CARBON DIOXIDE,CO2 25.1 mmol/L (21.0-32.0); CHLORIDE,CL 89 mmol/L (98-107); GLUCOSE RANDOM 101 mg/dL (74-106); LIPASE 895 U/L (73-393); POTASSIUM,K 4.3 mmol/L (3.5-5.1); SODIUM,NA 124 mmol/L (136-148)
[2021-03-19] MEDS ORDERED: Iopamidol 755 MG/ML 500 ML Multipack Bottle IVPUSH ONE (15:05)
== END 2021-03-19 16:22 | disposition home or self-care (01) ==
LOC: MW.ED 12:29
DX: K85.20 Alcohol induced acute pancreatitis without necrosis or infection (principal); U07.1 COVID-19; K57.30 Diverticulosis of large intestine without perforation or abscess without bleeding; J44.9 Chronic obstructive pulmonary disease, unspecified; I10 Essential (primary) hypertension
CPT/HCPCS: 36415; 74178; 80053; 81003; 83690; 85025; 96374; 96375; 99284; J2270; J2405; J7030; Q9967; U0002

== ENCOUNTER 2021-03-23 02:50 | Emergency (ER) | payer MEDICARE, MEDICAID ==
[2021-03-23] MEDS ORDERED: LORazepam 2 MG/ML SDV IVPUSH ONE (02:59)
[2021-03-23 03:29] LABS: BLOOD UREA NITROGEN,BUN 5 mg/dL (7.0-18.0); CARBON DIOXIDE,CO2 25.5 mmol/L (21.0-32.0); CHLORIDE,CL 88 mmol/L (98-107); GLUCOSE RANDOM 122 mg/dL (74-106); POTASSIUM,K 4.4 mmol/L (3.5-5.1); SODIUM,NA 123 mmol/L (136-148)
== END 2021-03-23 05:00 | disposition home or self-care (01) ==
LOC: MW.ED 02:50
DX: U07.1 COVID-19 (principal); I10 Essential (primary) hypertension; J44.9 Chronic obstructive pulmonary disease, unspecified
CPT/HCPCS: 36415; 71045; 71045-26; 80053; 83605; 84484; 85025; 85379; 86140; 93005; 96374; 99285-25; J2060; Q0247

== ENCOUNTER 2021-03-24 17:41 | Emergency (ER) | payer MEDICARE, MEDICAID ==
[2021-03-24] MEDS ORDERED: LORazepam 2 MG/ML SDV IVPUSH ONE (19:29)
[2021-03-24 20:25] LABS: BLOOD UREA NITROGEN,BUN 7 mg/dL (7.0-18.0); CARBON DIOXIDE,CO2 26.2 mmol/L (21.0-32.0); CHLORIDE,CL 91 mmol/L (98-107); GLUCOSE RANDOM 119 mg/dL (74-106); POTASSIUM,K 4.8 mmol/L (3.5-5.1); SODIUM,NA 124 mmol/L (136-148)
== END 2021-03-24 21:13 | disposition home or self-care (01) ==
LOC: MW.ED 17:41
DX: U07.1 COVID-19 (principal); J44.9 Chronic obstructive pulmonary disease, unspecified; I12.9 Hypertensive chronic kidney disease with stage 1 through stage 4 chronic kidney disease, or unspecified chronic kidney disease; N18.9 Chronic kidney disease, unspecified
CPT/HCPCS: 36415; 71045; 80053; 84484; 85025; 93005; 96374; 99285; J2060

== ENCOUNTER 2021-05-13 04:17 | Emergency (ER) | payer MEDICARE, MEDICAID ==
[2021-05-13] MEDS ORDERED: Albuterol/Ipratropium 3.0-0.5 MG/3 ML Neb Soln NEB ONE (04:39)
== END 2021-05-13 09:45 ==
LOC: MW.ED 04:17
DX: J95.03 Malfunction of tracheostomy stoma (principal); J44.9 Chronic obstructive pulmonary disease, unspecified; I12.9 Hypertensive chronic kidney disease with stage 1 through stage 4 chronic kidney disease, or unspecified chronic kidney disease; N18.9 Chronic kidney disease, unspecified; Z79.899 Other long term (current) drug therapy
CPT/HCPCS: 71045; 71045-26; 94640; 99285-25; J7620-GY

== ENCOUNTER 2021-05-15 11:23 | Emergency (ER) | payer MEDICARE, MEDICAID | END 2021-05-15 13:47 | disposition home or self-care (01) | LOC: MW.ED 11:23 | DX: Z43.0 Encounter for attention to tracheostomy (principal); I12.9 Hypertensive chronic kidney disease with stage 1 through stage 4 chronic kidney disease, or unspecified chronic kidney disease; N17.9 Acute kidney failure, unspecified; N18.9 Chronic kidney disease, unspecified; J44.9 Chronic obstructive pulmonary disease, unspecified; Z79.899 Other long term (current) drug therapy | CPT/HCPCS: 99283 ==

== ENCOUNTER 2022-06-13 10:50 | Emergency (ER) | payer MEDICARE, MEDICAID | END 2022-06-13 12:35 | disposition home or self-care (01) | LOC: MW.ED 10:50 | DX: T17.990A Other foreign object in respiratory tract, part unspecified in causing asphyxiation, initial encounter (principal); I12.9 Hypertensive chronic kidney disease with stage 1 through stage 4 chronic kidney disease, or unspecified chronic kidney disease; N18.9 Chronic kidney disease, unspecified; J44.9 Chronic obstructive pulmonary disease, unspecified; Z86.16 Personal history of COVID-19 | CPT/HCPCS: 71045; 71045-26; 99283; 99285 ==